=== PATIENT | male | born 1970 | race Caucasian/White ===

== ENCOUNTER 2016-07-27 21:11 | Emergency (ER) | payer MEDICARE ==
[~2016-07-27 21:11] MED LIST: AMITRIPTYLINE H50 MG PO; BAYER CHEWABLE81 MG PO; CARAFATE1 G PO; ECOTRIN325 MG PO; ELAVIL10 MG PO; ISOSORBIDE MONO30 M1 PO; KLONOPIN1 MG PO; PLAVIX75 MG PO; PRAVACHOL40 MG PO; PRILOSEC20 MG PO; WELLBUTRIN75 MG PO; ZESTRIL40 MG PO; ZOFRAN4 MG PO
[2016-07-27 22:07] LABS: CKMB 0.8 U/L (0.0-3.6); CREATINE KINASE 64 UL (21-232); TROPONIN-I < 0.017 ng/mL (0.000-0.060)
== END 2016-07-27 22:47 | disposition home or self-care (01) ==
LOC: D.ER 21:11
PROVIDERS: Emergency Medicine
DX: R07.9 Chest pain, unspecified (principal); I25.10 Atherosclerotic heart disease of native coronary artery without angina pectoris; I10 Essential (primary) hypertension; K21.9 Gastro-esophageal reflux disease without esophagitis; I45.10 Unspecified right bundle-branch block

== ENCOUNTER 2016-07-29 20:14 | Emergency (ER) | payer MEDICARE ==
[2016-07-29 20:46] LABS: BASOPHILS 0.8 % (0.0-2.0); EOSINOPHILS 4.3 % (0-7); HEMATOCRIT 47.5 % (42.0-54.0); HEMOGLOBIN 16.4 g/dL (13.5-17.5); IMMATURE GRANULOCYTES 0.9 % (0-5); LYMPHOCYTES 34.1 % (15-50); MCH 32.2 pg (26.0-34.0); MCHC 34.5 g/dL (31.0-37.0); MCV 93.3 fL (80.0-100.0); MEAN PLATELET VOLUME 9.4 fL (7.4-10.4); MONOCYTES 6.7 % (2-11); NEUTROPHILS 53.2 % (40-80); PLATELET COUNT 210 10x3/uL (130-400); RBC 5.09 10x6/uL (4.20-6.10); RDW 12.6 % (11.5-14.5); WBC 10.7 10x3/uL (4.8-10.8)
[2016-07-29 21:13] LABS: ALBUMIN 4.2 g/dL (3.4-5.0); ALKALINE PHOSPHATASE 108 U/L (46-116); ALT (SGPT) 102 U/L (10-68); BILIRUBIN - TOTAL 0.39 mg/dL (0.2-1.3); CALC OSMOLALITY 282 mosm/kg (275-300); CALCIUM 9.6 mg/dL (8.5-10.1); CARBON DIOXIDE 27.9 mmol/L (21.0-32.0); CHLORIDE - SERUM 102 mmol/L (98-107); CHOL - HDL RATIO 3.1 ratio (2.3-4.9); CHOLESTEROL, TOTAL 166 mg/dL (0-200); CKMB 0.9 U/L (0.0-3.6); CREATINE KINASE 79 UL (21-232); CREATININE - SERUM 1.5 mg/dL (0.6-1.3); GLUCOSE 172 mg/dL (74-106); HDL CHOLESTEROL 54 mg/dL (32-96); LDL CHOLESTEROL 38 mg/dL (0-100); LDL-HDL RATIO 0.7 ratio (1.5-3.5); POTASSIUM - SERUM 4.2 mmol/L (3.5-5.1); PROTEIN - SERUM 7.5 g/dL (6.4-8.2); SODIUM 139 mmol/L (136-145); TRIGLYCERIDE 371 mg/dL (30-200); UREA NITROGEN 15 mg/dL (7-18); eGFR NON AFRICAN AMERICAN 54 mL/min (90-120)
[2016-07-29 21:14] LABS: TROPONIN-I < 0.017 ng/mL (0.000-0.060)
== END 2016-07-29 21:35 | disposition home or self-care (01) ==
LOC: D.ER 20:14
PROVIDERS: Emergency Medicine
DX: R07.9 Chest pain, unspecified (principal); I25.10 Atherosclerotic heart disease of native coronary artery without angina pectoris; I10 Essential (primary) hypertension; K21.9 Gastro-esophageal reflux disease without esophagitis; R00.0 Tachycardia, unspecified; I45.10 Unspecified right bundle-branch block; I44.60 Unspecified fascicular block

== ENCOUNTER 2016-10-29 00:53 | Emergency (ER) | payer MEDICARE ==
[2016-10-29 01:21] LABS: EOSINOPHILS 7.1 % (0-7); HEMATOCRIT 44.2 % (42.0-54.0); HEMOGLOBIN 15.2 g/dL (13.5-17.5); IMMATURE GRANULOCYTES 0.8 % (0-5); LYMPHOCYTES 37.4 % (15-50); MCH 31.9 pg (26.0-34.0); MCHC 34.4 g/dL (31.0-37.0); MCV 92.9 fL (80.0-100.0); MEAN PLATELET VOLUME 9.5 fL (7.4-10.4); MONOCYTES 7.3 % (2-11); NEUTROPHILS 46.4 % (40-80); PLATELET COUNT 191 10x3/uL (130-400); RBC 4.76 10x6/uL (4.20-6.10); RDW 12.2 % (11.5-14.5); WBC 9.4 10x3/uL (4.8-10.8)
[2016-10-29 01:34] LABS: ALBUMIN 3.9 g/dL (3.4-5.0); ALKALINE PHOSPHATASE 105 U/L (46-116); ALT (SGPT) 101 U/L (10-68); BILIRUBIN - TOTAL 0.43 mg/dL (0.2-1.3); CALC OSMOLALITY 281 mosm/kg (275-300); CALCIUM 8.5 mg/dL (8.5-10.1); CHLORIDE - SERUM 103 mmol/L (98-107); CREATININE - SERUM 1.2 mg/dL (0.6-1.3); GLUCOSE 183 mg/dL (74-106); POTASSIUM - SERUM 4.1 mmol/L (3.5-5.1); PROTEIN - SERUM 7.3 g/dL (6.4-8.2); SODIUM 139 mmol/L (136-145); UREA NITROGEN 9 mg/dL (7-18); eGFR NON AFRICAN AMERICAN 69 mL/min (90-120)
[2016-10-29 01:51] LABS: CHOL - HDL RATIO 2.9 ratio (2.3-4.9); CHOLESTEROL, TOTAL 149 mg/dL (0-200); CREATINE KINASE 83 UL (21-232); HDL CHOLESTEROL 52 mg/dL (32-96); LDL CHOLESTEROL 45 mg/dL (0-100); LDL-HDL RATIO 0.9 ratio (1.5-3.5); TRIGLYCERIDE 260 mg/dL (30-200)
[2016-10-29 01:54] LABS: TROPONIN-I < 0.017 ng/mL (0.000-0.060)
== END 2016-10-29 02:38 | disposition home or self-care (01) ==
LOC: D.ER 00:53
PROVIDERS: Emergency Medicine
DX: R07.9 Chest pain, unspecified (principal); I25.10 Atherosclerotic heart disease of native coronary artery without angina pectoris; I10 Essential (primary) hypertension; K21.9 Gastro-esophageal reflux disease without esophagitis; I45.10 Unspecified right bundle-branch block; I44.60 Unspecified fascicular block

== ENCOUNTER 2016-12-27 11:38 | Inpatient (IN) | payer MEDICARE ==
[~2016-12-27] VITALS: Ht 170.2 cm; Wt 88.4 kg
[2016-12-27 13:12] LABS: BASOPHILS 0.4 % (0-2); EOSINOPHILS 1.3 % (0-7); HEMATOCRIT 49.5 % (42.0-54.0); HEMOGLOBIN 17.4 g/dL (13.5-17.5); IMMATURE GRANULOCYTES 0.8 % (0-5); LYMPHOCYTES 14.3 % (15-50); MCH 32.2 pg (26.0-34.0); MCHC 35.2 g/dL (31.0-37.0); MCV 91.7 fL (80.0-100.0); MEAN PLATELET VOLUME 9.6 fL (7.4-10.4); NEUTROPHILS 76.2 % (40-80); PLATELET COUNT 226 10x3/uL (130-400); RDW 12.5 % (11.5-14.5); WBC 15.5 10x3/uL (4.8-10.8)
[2016-12-27 13:28] LABS: ALBUMIN 4.7 g/dL (3.4-5.0); ALKALINE PHOSPHATASE 92 U/L (46-116); ALT (SGPT) 118 U/L (10-68); BILIRUBIN - TOTAL 1.12 mg/dL (0.2-1.3); CALC OSMOLALITY 277 mosm/kg (275-300); CALCIUM 10.6 mg/dL (8.5-10.1); CARBON DIOXIDE 22.8 mmol/L (21.0-32.0); CHLORIDE - SERUM 101 mmol/L (98-107); CREATININE - SERUM 1.3 mg/dL (0.6-1.3); GLUCOSE 157 mg/dL (74-106); POTASSIUM - SERUM 4.7 mmol/L (3.5-5.1); PROTEIN - SERUM 8.3 g/dL (6.4-8.2); SODIUM 138 mmol/L (136-145); UREA NITROGEN 11 mg/dL (7-18); eGFR NON AFRICAN AMERICAN 63 mL/min (90-120)
[2016-12-27 13:53] LABS: CHOL - HDL RATIO 2.5 ratio (2.3-4.9); CHOLESTEROL, TOTAL 157 mg/dL (0-200); CREATINE KINASE 84 UL (21-232); HDL CHOLESTEROL 64 mg/dL (32-96); LDL CHOLESTEROL 73 mg/dL (0-100); LDL-HDL RATIO 1.1 ratio (1.5-3.5); TRIGLYCERIDE 101 mg/dL (30-200)
[2016-12-27 13:55] LABS: TROPONIN-I < 0.017 ng/mL (0.000-0.060)
--- NOTE | 2016-12-27 18:19 | NUR ---
RECEIVED PATIENT TO ROOM 2238 VIA WHEELCHAIR FROM THE ER. PATIENT IS AWAKE, ALERT, AND ORIENTED X4. PATIENT IS PROFUSELY VOMITING IN EMESIS BAG UPON ARRIVAL TO HIS ROOM. PATIENT MOANING LOUDLY. NG TUBE NOTED IN RIGHT NARES AND IS CLAMPED OFF. ORIENTED PATIENT AND FAMILY TO HIS ROOM AND CALL LIGHT.
[2016-12-27 18:21] LABS: APPEARANCE CLEAR (CLEAR); BILIRUBIN NEGATIVE (NEGATIVE); COLOR YELLOW (YELLOW); GLUCOSE NEGATIVE (NEGATIVE); KETONE SMALL mg/dL (NEGATIVE); LEUKOCYTE ESTERASE NEGATIVE (NEGATIVE); NITRITE NEGATIVE (NEGATIVE); PROTEIN TRACE mg/dL (NEGATIVE); UROBILINOGEN NORMAL (NORMAL)
--- NOTE | 2016-12-27 18:49 | NUR ---
16FR NGT DROPPED PER ORDERS. IMMEDIATE RETURN OF 50CC'S OF YELLOW/GREEN FLUID TO CANISTER. KUB ORDERED PER PROTOCOL TO CHECK PLACEMENT.
--- NOTE | 2016-12-27 19:40 | NUR ---
RECIEVED SHIFT REPORT. PT IS LYING IN BED. ALERT AND ORIENTED AND ABLE TO VERBALIZE NEEDS. IV IS PATENT AND FLUIDS ARE RUNNING PER ORDER. PT IS AMBULATORY WITH ASSISTANCE. NGT TO LEFT NARE PATENT AND CONNECTED TO LIWS. 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 NO NEEDS ARE VERBALIZED AT THIS TIME. FAMILY AND VISITORS ARE AT THE BEDSIDE. WILL CONTINUE TO MONITOR. SIDE RAILS ARE UP X 2. BED IS IN LOWEST POSITION. CALL LIGHT IS WITHIN REACH.
[2016-12-27 20:00] VITALS: BP 112/72
--- NOTE | 2016-12-27 22:37 | NUR ---
ADMIT ASSESSMENT COMPLETED AT THIS TIME. PT HAS NO NEEDS. WILL MONITOR. SIDE RAILS X 2. BED LOW. CALL LIGHT IN REACH.
[2016-12-28] VITALS (7 sets, daily range): BP systolic 110–133; BP diastolic 72–703; Ht 170.2 cm; Wt 88.4 kg
[2016-12-28 00:53] LABS: APPEARANCE CLEAR (CLEAR); BILIRUBIN NEGATIVE (NEGATIVE); COLOR YELLOW (YELLOW); GLUCOSE NEGATIVE (NEGATIVE); KETONE SMALL mg/dL (NEGATIVE); LEUKOCYTE ESTERASE NEGATIVE (NEGATIVE); NITRITE NEGATIVE (NEGATIVE); PROTEIN NEGATIVE (NEGATIVE); SPECIFIC GRAVITY 1.015 (1.005-1.020); UROBILINOGEN NORMAL (NORMAL)
[2016-12-28 05:34] LABS: BASOPHILS 0.6 % (0-2); EOSINOPHILS 1.5 % (0-7); HEMATOCRIT 47.5 % (42.0-54.0); HEMOGLOBIN 16.1 g/dL (13.5-17.5); IMMATURE GRANULOCYTES 0.8 % (0-5); LYMPHOCYTES 24.8 % (15-50); MCHC 33.9 g/dL (31.0-37.0); MEAN PLATELET VOLUME 9.7 fL (7.4-10.4); MONOCYTES 10.9 % (2-11); NEUTROPHILS 61.4 % (40-80); PLATELET COUNT 226 10x3/uL (130-400); RBC 5.03 10x6/uL (4.20-6.10); RDW 12.8 % (11.5-14.5); WBC 13.2 10x3/uL (4.8-10.8)
[2016-12-28 06:02] LABS: ANION GAP 15.5 mmol/L (8-16); CALCIUM 9.9 mg/dL (8.5-10.1); CARBON DIOXIDE 27.8 mmol/L (21.0-32.0); CREATININE - SERUM 1.5 mg/dL (0.6-1.3); MAGNESIUM - SERUM 1.7 mg/dL (1.8-2.4); POTASSIUM - SERUM 4.3 mmol/L (3.5-5.1)
[2016-12-28 06:36] LABS: MCV 94.4 fL (80.0-100.0)
--- NOTE | 2016-12-28 07:30 | NUR ---
RECIEVED PT DURING WALKING ROUNDS. PT RESTING IN BED WITH NO COMPLAINTS OF PAIN OR DISCOMFORT AT THIS TIME. ASSESSMETN DONE PER FLOWSHEET. BED IN LOW POSITION AND CALL LIGHT WITHIN REACH. WILL CONTINUE TO MONITOR.
--- NOTE | 2016-12-28 09:49 | HP ---
PATIENT: ANDRE PATIÑO MEDICAL RECORD: [id number] ACCOUNT: [id number] LOCATION:[id number] : 72 ADMISSION DATE: 12/27/16 HISTORY AND PHYSICAL EXAMINATION DATE OF ADMISSION: 12/27/2016 CHIEF COMPLAINT: Abdominal pain and vomiting. HISTORY OF PRESENT ILLNESS: This is a 46-year-old male, who woke up with acute onset of abdominal pain in approximately 4:00 this morning. The patient says the pain woke him from sleep. The pain has been constant since onset. It is located diffusely throughout the abdomen, described it as cramping, stabbing abdominal pain, did not radiate. It fluctuates in intensity, it is currently 7 out of 10. He says he had 6 days episode of vomiting prior to his arrival to the ER today. The patient denies any episodes of hematemesis. Denies any melena or hematochezia. No dysuria. Denies any constipation or diarrhea. Denies fever or chills. PAST MEDICAL HISTORY: Coronary artery disease, hypertension, and nicotine dependence. PAST SURGICAL HISTORY: Coronary angiography with stent and angioplasty, cholecystectomy, right inguinal hernia repair. SOCIAL HISTORY: He is a daily smoker. Denies alcohol use. MEDICATIONS: Please see electronic medical record for full list of home medications. FAMILY HISTORY: Parents both have diabetes and cardiovascular disease. REVIEW OF SYSTEMS: A 12-point review of system was obtained, pertinent positives and negatives as per the HPI. PHYSICAL EXAMINATION: VITAL SIGNS: Stable. He is febrile. CONSTITUTIONAL: This is an obese male, in moderate distress. PSYCHIATRIC: He is alert and oriented times 3. EYES: Extraocular muscles are intact. EAR, NOSE AND THROAT: Mucous membranes dry, poor dentition. NECK: Supple. CARDIOVASCULAR: Normal sinus rhythm. No murmur. LUNGS: Decreased breath sounds bilaterally with bilateral wheezing. ABDOMEN: Firm and is moderately distended. No palpable hernia defects. No guarding. No rebound. No peritoneal signs. SKIN: Warm and dry with normal turgor. EXTREMITIES: He is neurovascularly intact with 1+ peripheral edema. NEUROLOGIC: GCS is 15 with no focal deficits. LABORATORY DATA: Reviewed. Please see electronic medical record for full list of laboratory values, the chemistry and urinalysis. CT images of the bowel were personally reviewed. The patient has dilation of the proximal small bowel, there was some mild tapering . KUB/abdominal x-ray reviewed which shows appropriate placement of NG tube in the stomach. HISTORY AND PHYSICAL [id number] ANDRE PATIÑO IMPRESSION: 1. Small-bowel obstruction. Abdominal ____. PLAN: 1. Admit to Med/Surg to Dr. Lyon. 2. NG tube decompression. 3. ____ I's and O's. 4. IV narcotics for pain control. 5. IV antiemetics. 6. Serial abdominal exams. 7. Repeat abdominal x-ray in the a.m. Repeat labs in the a.m. TRANSINT:[id number] Voice Confirmation ID: [id number] DOCUMENT ID: [id number] ANDRE LYON MD at 0949 CC: [id number] DICTATION DATE: 12/27/162136 TONGUE TRIMMER: 12/28/16 0140 ADM IN [facility] [address] [id number]
--- NOTE | 2016-12-28 12:50 | NUR ---
NG TUBE REMOVED AT THIS TIME PER ORDER FROM DR. LYON. PT TOLERATED WELL. BED IN LOW POSTION AND CALL LIGHT WITHIN REACH. WILL CONTINUE TO MONITOR.
--- NOTE | 2016-12-28 14:41 | NUR ---
Patient Name: ANDRE PATIÑO Admission Status: ER Accout number: [id number] Admission Date: 12-27-2016 : 1970 Admission Diagnosis: Attending: MICKEY Current LOS: 1 Anticipated DC Date: 12-30-2016 Planned Disposition: Home Primary Insurance: MEDICARE A & B Discharge Planning Comments: CM MET WITH PATIENT REGARDING D/C NEEDS AND PLANS. PATIENT STATED HE LIVES WITH HIS SON AND DAUGHTER IN LAW (CANDICE, AND BLESSING). PATIENTS SON WILL DRIVE HIM HOME AT DISCHARGE. PATIENT STATED HE HAS 2 STEPS TO ENTER HOME AND NO STAIRS INSIDE. PATIENT IS INDEPENDENT WITH HIS CARE AND HAS A WALKER, AND SET OF CRUTCHES AT HOME. PATIENTS PCP IS DR. VILLEDA AND PHARMACY IS [facility] [address]. PATIENT REFUSED HOME HEALTH AND STATED HE HAD NO NEEDS AT THIS TIME FOR DISCHARGE. CM WILL CONTINUE TO FOLLOW PATIENT WITH D/C NEEDS AND PLANS. PCP DR. CHRISTIANA MATTHEWS [facility] [employer]E [phone] JUSTA - [phone] Block Cuber: Cari Ramos Is the patient Alert and Oriented? Yes 0 * How many steps to enter\exit or inside your home? 2 W/O RAIL 0 * PCP DR. VILLEDA 0 * Pharmacy [facility] [address] 0 * Preadmission Environment Home with Family 0 * ADLs Independent 0 * Equipment Crutch Walker 0 * List name and contact numbers for known caregivers / representatives who currently or will assist patient after discharge: JUSTA GARNETT (SON AND DIL) [phone] * Community resources currently utilized None 0 * Additional services required to return to the preadmission environment? Yes 0 * Can the patient safely return to the preadmission environment? Yes 0 * Has this patient been hospitalized within the prior 30 days at any hospital? No 0 Grand Total: 0
--- NOTE | 2016-12-28 20:59 | NUR ---
PT SITTING UP IN BED. ALERT AND ORIENTED. C/O PAIN 09/29 TO ABD. INSTRUCTED TO USE MERCHANDISING LEAD. NOTED SEVERE SHAKING OF HANDS. STATES THIS IS NEW TODAY. SCHEDULED MEDS GIVEN. SHIFT ASSESSMENT COMPLETED. NO NEEDS VOICED AT THIS TIME
--- NOTE | 2016-12-28 23:55 | NUR ---
PT IV OUT. CATH TIP INTACT. NEW IV 20G IV STARTED TO LEFT HAND ON FIRST ATTEMPT. TOLERATED WITHOUT COMPLAINTS
[2016-12-29] VITALS: BP 124/81
[2016-12-29 04:00] VITALS: BP 137/86
--- NOTE | 2016-12-29 04:14 | NUR ---
PT SITTING IN BED WORKING ON COMPUTER. DENIES NEEDS. NO DISTRESS NOTED. CONTINUE INK PRINTER'S PLAN OF CARE.
[2016-12-29 06:28] LABS: BASOPHILS 0.7 % (0-2); EOSINOPHILS 3.3 % (0-7); HEMATOCRIT 40.9 % (42.0-54.0); HEMOGLOBIN 13.4 g/dL (13.5-17.5); IMMATURE GRANULOCYTES 0.5 % (0-5); LYMPHOCYTES 27.7 % (15-50); MCH 31.4 pg (26.0-34.0); MCHC 32.8 g/dL (31.0-37.0); MCV 95.8 fL (80.0-100.0); MEAN PLATELET VOLUME 9.2 fL (7.4-10.4); NEUTROPHILS 57.8 % (40-80); RBC 4.27 10x6/uL (4.20-6.10); RDW 12.6 % (11.5-14.5); WBC 10.7 10x3/uL (4.8-10.8)
[2016-12-29 06:30] LABS: PLATELET COUNT 179 10x3/uL (130-400)
[2016-12-29 07:15] LABS: CALCIUM 8.5 mg/dL (8.5-10.1); CARBON DIOXIDE 28.3 mmol/L (21.0-32.0); CREATININE - SERUM 1.4 mg/dL (0.6-1.3); MAGNESIUM - SERUM 1.9 mg/dL (1.8-2.4); POTASSIUM - SERUM 4.3 mmol/L (3.5-5.1)
--- NOTE | 2016-12-29 07:30 | NUR ---
RECIEVED PT DURING WALKING ROUNDS. PT RESTING IN BED WITH COMPLAINTS OF DISCOMFORT IN HIS ABDOMEN OF A 4 ON A SCALE OF 1-10. TRAFFIC WORKER IN USE. ASSESSMENT DONE PER FLOWSHEET. BED IN LOW POSITION AND CALL LIGHT WITHIN REACH. WILL CONTINUE TO MONITOR.
[2016-12-29 08:09] VITALS: BP 130/83
--- NOTE | 2016-12-29 09:22 | NUR ---
DC'S DEVELOPMENT INTERN AT THIS TIME PER DRS ORDERS. WILL CONTINUE TO MONITOR.
[2016-12-29 12:38] VITALS: BP 109/70
[2016-12-29] MEDS ORDERED: ZOFRAN ODT4 MG/UDTAB PO (14:40)
--- NOTE | 2016-12-29 16:27 | NUR ---
CM REASSESSMENT NOTE: PATIENT IS DISCHARGING TODAY HOME - SON DRIVING HIM. PATIENT DENIED HOME HEALTH AND HAD NO OTHER NEEDS FOR DISCHARGE.
--- NOTE | 2016-12-29 18:10 | NUR ---
DISCHARGE INSTRUCTIONS GIVEN, IV REMOVED. PT DISCHARGED TO HOME VIA WHEELCHAIR.
== END 2016-12-29 18:11 | disposition home or self-care (01) | DRG 390 ==
LOC: D.ER 11:38 → D.MS 16:55
PROVIDERS: Emergency Medicine; ADMIT Surgery
DX: K56.60 Unspecified intestinal obstruction (principal); K21.9 Gastro-esophageal reflux disease without esophagitis; I10 Essential (primary) hypertension; I25.10 Atherosclerotic heart disease of native coronary artery without angina pectoris

== ENCOUNTER 2017-04-24 20:35 | Emergency (ER) | payer MEDICARE ==
[2016-12-28 01:37] VITALS: BMI 31.4
[~2017-04-24 20:35] MED LIST changes: +ZOFRAN ODT4 MG/UDTAB PO
[2017-04-24 21:16] LABS: BASOPHILS 0.8 % (0-2); EOSINOPHILS 2.4 % (0-7); HEMATOCRIT 45.7 % (42.0-54.0); HEMOGLOBIN 15.7 g/dL (13.5-17.5); IMMATURE GRANULOCYTES 0.9 % (0-5); LYMPHOCYTES 32.7 % (15-50); MCH 31.9 pg (26.0-34.0); MCHC 34.4 g/dL (31.0-37.0); MCV 92.9 fL (80.0-100.0); MEAN PLATELET VOLUME 9.2 fL (7.4-10.4); MONOCYTES 7.2 % (2-11); PLATELET COUNT 198 10x3/uL (130-400); RBC 4.92 10x6/uL (4.20-6.10); RDW 12.5 % (11.5-14.5); WBC 10.3 10x3/uL (4.8-10.8)
[2017-04-24 21:42] LABS: ALBUMIN 4.3 g/dL (3.4-5.0); ALKALINE PHOSPHATASE 86 U/L (46-116); ALT (SGPT) 54 U/L (10-68); CALC OSMOLALITY 279 mosm/kg (275-300); CALCIUM 9.7 mg/dL (8.5-10.1); CARBON DIOXIDE 28.6 mmol/L (21.0-32.0); CHLORIDE - SERUM 102 mmol/L (98-107); CREATININE - SERUM 1.3 mg/dL (0.6-1.3); GLUCOSE 164 mg/dL (74-106); POTASSIUM - SERUM 4.2 mmol/L (3.5-5.1); PROTEIN - SERUM 7.3 g/dL (6.4-8.2); SODIUM 137 mmol/L (136-145); UREA NITROGEN 17 mg/dL (7-18); eGFR NON AFRICAN AMERICAN 63 mL/min (90-120)
[2017-04-24 21:54] LABS: CKMB 0.5 U/L (0.0-3.6); CREATINE KINASE 71 UL (21-232); TROPONIN-I < 0.017 ng/mL (0.000-0.060)
== END 2017-04-25 00:09 | disposition home or self-care (01) ==
LOC: D.ER 20:35
PROVIDERS: Family Medicine
DX: R07.89 Other chest pain (principal); M51.36 Other intervertebral disc degeneration, lumbar region; I45.10 Unspecified right bundle-branch block; I44.60 Unspecified fascicular block

== ENCOUNTER 2017-05-20 18:32 | Outpatient (CLI) | payer MEDICARE ==
[2016-12-28 01:37] VITALS: BMI 31.4
--- NOTE | ~2017-05-20 | HEMODYNAMI ---
PATIENT:ANDRE PATIÑO MEDICAL RECORD: [id number] : [birth year] [facility] ADMISSION DATE: 05/20/17 Generatedon:05/21/201712:23 Patient name: ANDRE PATIÑO Patient #: [id number] : 1970 Date of study: 05/21/2017 Page: Of Hemodynamic Procedure Report Patient Data Patient Demographics Procedure consent was obtained First Name: ANDRE Gender: Male Last Name: HAROON : 1970 Middle Initial: JOJO Age: 47 year(s) Patient #: [id number] Race: SSN: [id number] Additional ID: [id number] Contact details Address: [address] [place] [address] State: [place] City: [place] Zip code: [address] Past Medical History Allergies: No known allergies Admission Admission Data Admission Date: 05/20/2017 Admission Time: 20:07 Room #: [facility] Procedure Procedure Types Cath Procedure Diagnostic Procedure [facility] w/Coronaries PCI Procedure Coronary Stent Initial Miscellaneous Procedures Moderate Sedation up to 30 minutes Procedure Description Procedure Date Procedure Date: 05/21/2017 Procedure Start Time: 12:03 Procedure End Time: 12:22 Procedure Staff Name Function Lj Zamorano MD Performing Physician Ulices Redd RT Scrub Catarina Norman RN Nurse Cristina Arias RT Monitor Lulu Miranda RN Nurse Procedure Data Cath Procedure Fluoroscopy Diagnostic fluoroscopy Total fluoroscopy Time: 3.2 time: 3.2 min min Diagnostic fluoroscopy Total fluoroscopy dose: 794 dose: 794 mGy mGy Contrast Material Contrast Material Type Amount (ml) Isovue 300 84 Entry Location Entry Primary Successful Side Size Upsize Upsize Entry Closure Succes sful Closure Location (Fr) 1 (Fr) 2 (Fr) Remarks Device Remarks Femoral Right 5 Fr 6 Fr Exoseal artery Short Estimated blood loss: 10 ml Diagnostic catheters Device Type Used For End Catheter Placement Cordis 5Fr Pigtail LV Angiography Catheter (MP) Cordis 5Fr JL 4.0 Left Coronary Catheter (MP) Angiography Cordis 5Fr 3DRC Catheter Right Coronary (MP) Angiography Procedure Complications No complications Procedure Medications Medication Administration Route Dosage Oxygen NC 2 l/min Lidocaine 2% added to field 20 Heparin Flush Bag added to field 2 bags (1000units/500ml NS) 0.9% NaCl I.V. 100 ml/hr Versed I.V. 2 mg Fentanyl I.V. 100 mcg Heparin Bolus I.V. 4000 units Integrilin (Bolus I.V. 8.5 ml 2mg/ml) Versed I.V. 2 mg Fentanyl I.V. 100 mcg Plavix P.O. 600 mg Hemodynamics Rest Heart Rate: 95 (bpm) Snapshots Pre Cath Intra NCS Post Cath Vital Signs Time Heart Resp SPO2 etCO2 NIBP (mmHg) Rhythm Pain Sedation Rate (ipm) (%) (mmHg) Status Level (bpm) 11:46:07 91 17 98 0 133/89(113) NSR 0 (11) 10(A) , No pain 11:50:23 93 17 99 37.3 135/94(111) NSR 0 (11) 10(A) , No pain 11:54:39 90 18 94 15.6 128/82(100) NSR 0 (11) 10(A) , No pain 11:59:33 86 17 93 28.3 149/96(112) NSR 0 (11) 10(A) , No pain 12:03:58 84 18 95 23.9 138/105(126) NSR 0 (11) 10(A) , No pain 12:09:52 82 16 94 42.5 142/103(120) NSR 0 (11) 9(A) , No pain 12:14:08 91 14 93 44.1 148/110(126) NSR 0 (11) 9(A) , No pain 12:19:19 93 16 95 40.3 150/84(123) NSR 0 (11) 10(A) , No pain Medications Time Medication Route Dose Verified Delivered Reason Notes Effectiveness by by 11:44:20 Oxygen NC 2 Lj Elmore used for l/min Jaun Norman edi developer 11:44:33 Lidocaine 2% added 20ml Lj Calhoun for local to vial Jaun Zamorano MD anesthetic field 11:44:42 Heparin Flush added 2 Lj Calhoun used for Bag to bags Jaun Zamorano MD procedure (1000units/500ml field NS) 11:44:52 0.9% NaCl I.V. 100 Lj Elmore Per ml/hr Jaun Norman RN physician 12:00:37 Versed I.V. 2 mg Lj Elmore for sedation Jaun Norman RN 12:00:43 Fentanyl I.V. 100 Lj Elmore for sedation mcg Jaun Norman RN 12:05:42 Versed I.V. 2 mg Lj Elmore for sedation Jaun Norman RN 12:05:45 Fentanyl I.V. 100 Lj Elmore for sedation mcg Jaun Norman RN 12:08:08 Heparin Bolus I.V. 4000 Lj Elmore for sedation verified units Jaun Norman RN with dr zamorano 12:09:18 Integrilin I.V. 8.5 Lj Elmore for wasted (Bolus 2mg/ml) ml Jaun Norman RN antiplatelet 1.5 ml therapy of vial 12:21:19 Plavix P.O. 600 jL Elmore for mg Jaun Norman RN antiplatelet therapy Procedure Log Time Note 11:30:13 Cristina Counts RT(R) sent for patient. Start room use. 11:30:14 Time tracking: Regular hours 11:30:18 Plan of Care:Hemodynamics will remain stable., Cardiac rhythm will remain stable., Comfort level will be maintained., Respiratory function will remain adequate., Patient/ family verbilizes understanding of procedure., Procedure tolerated without complication., Recovers from procedure without complications.. 11:44:20 Oxygen 2 l/min NC was administered by Catarina Norman RN; used for procedure; 11:44:33 Lidocaine 2% 20ml vial added to field was administered by Lj Zamorano MD; for local anesthetic; 11:44:42 Heparin Flush Bag (1000units/500ml NS) 2 bags added to field was administered by Lj Zamorano MD; used for procedure; 11:44:52 0.9% NaCl 100 ml/hr I.V. was administered by Catarina Norman RN; Per physician; 11:44:55 Vital chart was started 11:47:29 Patient received from PCU to [facility] 2 Alert and oriented. Tansferred to table in Supine position. 11:47:30 Warm blankets applied, and alberto hugger turned on for patient comfort. 11:47:31 Correct patient and procedure confirmed by team. 11:47:32 Signed procedure consent form obtained from patient. 11:47:33 ECG and BP/O2 sat monitors applied to patient. 11:49:49 PERCUTANEOUS ENTRY 19GA needle opened to sterile field. 11:49:52 Baseline sample Acquired. 11:49:55 Rhythm: sinus rhythm 11:49:56 Full Disclosure recording started 11:50:24 H&P Date Dictated: 05/21/2017 Within 30 days and on chart.. 11:50:26 Pre-procedure instructions explained to patient. 11:50:26 Pre-op teaching completed and patient verbalized understanding. 11:50:27 Family in waiting room. 11:50:28 Patient NPO since Midnight. 11:50:35 Is the patient allergic to Iodine/contrast media? No. 11:51:07 Is patient on blood thinner?No 11:51:10 Patient diabetic? No. 11:51:14 Previous problem with sedation/anesthesia? No ? 11:51:14 Snore? Yes 11:51:15 Sleep apnea? Yes 11:51:16 Deviated septum? No 11:51:17 Opens mouth fully? Yes 11:51:18 Sticks out tongue? Yes 11:51:20 Airway obstruction? No ? 11:51:21 Dentures? No ? 11:51:24 Pre procedure: right dorsailis pedis pulse 2+ Normal; easily identifiable; not easily obliterated 11:51:27 Patient pain scale 0/10 ?. 11:51:35 IV patent on arrival in right forearm with 0.9% NaCl at O. 11:51:45 Lab results completed and on chart. 11:51:47 Right groin area was prepped with chlora-prep and draped in sterile fashion 11:51:48 Alarms reviewed by R. N. 11:51:48 Sharps counted by scrub and verified by R.N. 11:51:51 Use device set Femoral Dx 11:51:53 Acist Syringe opened to sterile field. 11:51:53 Bag Decanter opened to sterile field. 11:51:54 Medline Cath Pack opened to sterile field. 11:51:54 Terumo 5Fr [place]uiqs[place] Sheath opened to sterile field. 11:51:54 St Weston 260cm J .035 wire opened to sterile field. 11:51:56 Acist Hand Control opened to sterile field. 11:51:57 Acist Manifold opened to sterile field. 11:51:57 Diagnostic Infinity 5Fr Multipack catheter opened to sterile field. 11:51:58 Tegaderm 4 x 4 opened to sterile field. 11:56:05 Physician paged 11:58:15 Zero performed for pressure channel P1 11:59:46 Final Timeout: patient, procedure, and site verified with staff and physician. All members of the team are in agreement. 11:59:48 Right groin site verified by team. 11:59:51 Physical assessment completed. ASA score P 2 - A patient with mild systemic disease as per Lj Zamorano MD. 11:59:53 Sedation plan: IV Moderate Sedation Versed, Fentanyl 12:00:37 Versed 2 mg I.V. was administered by Catarina Norman RN; for sedation; 12:00:43 Fentanyl 100 mcg I.V. was administered by Catarina Norman RN; for sedation; 12:03:01 Procedure started. 12:03:03 Local anesthetic to right femoral artery with Lidocaine 2% by Lj Zamorano MD.INITIAL ACCESS ONLY 12:03:48 A 5 Fr sheath was inserted into the Right Femoral artery 12:03:54 A Cordis 5Fr Pigtail Catheter (MP) was advanced over the wire and used for LV Angiography. 12:04:10 LV gram done using VRAGAS 12:04:13 EF : 50 % 12:04:18 Injector settings: Ml/sec: 10, Volume: 20, 12:04:19 Catheter removed. 12:04:24 A Cordis 5Fr JL 4.0 Catheter (MP) was advanced over the wire and used for Left Coronary Angiography. 12:05:33 Catheter removed. 12:05:39 A Cordis 5Fr 3DRC Catheter (MP) was advanced over the wire and used for Right Coronary Angiography. 12:05:42 Versed 2 mg I.V. was administered by Catarina Norman RN; for sedation; 12:05:45 Fentanyl 100 mcg I.V. was administered by Catarina Norman RN; for sedation; 12:05:57 Terumo 6Fr Nuiqsut Sheath opened to sterile field. 12:05:57 Hutchinson Whisper J 300cm 0.014 guide wire opened to sterile field. 12:05:58 Merit BasixCompak Inflation Kit opened to sterile field. 12:06:40 Catheter removed. 12:06:52 Sheath upsized to a 6 Fr Short. 12:07:22 Cordis 6FR XBLAD 3.5 guide catheter opened to sterile field. 12:07:58 6 Fr XBLAD 3.5 guide catheter was inserted over the wire 12:08:08 Heparin Bolus 4000 units I.V. was administered by Catarina Norman RN; for sedation; verified with dr zamorano 12:08:57 Whisper wire advanced. 12:09:18 Integrilin (Bolus 2mg/ml) 8.5 ml I.V. was administered by Catarina Norman RN; for antiplatelet therapy; wasted 1.5 ml of vial 12:10:49 Inflation number: 1 A Euphora 2.0 x 10 Balloon was prepped and advanced across the 1st Diag, then inflated to 17 LACEY for 0:11 (min:sec). 12:11:18 Inflation number: 2 The Euphora 2.0 x 10 Balloon was reinflated across the 1st Diag, to 7 LACEY for 0:06 (min:sec). 12:11:30 Balloon removed over the wire. 12:14:33 Inflation Number: 3 A Hugoton OTW 2.25 x 22 stent was prepped and advanced across the 1st Diag. The stent was deployed at 11 LACEY for 0:04 (min:sec). 12:14:51 Stent catheter was removed intact over wire. 12:14:52 Wire removed. 12:14:53 Guide catheter removed. 12:15:01 Sheath removed intact; hemostasis achieved with Exoseal to the Right Femoral artery. 12:15:07 Cordis 6Fr Exoseal opened to sterile field. 12:15:12 Procedure ended.(Physican Out) 12:15:33 Fluoroscopy time 03.20 minutes. 12:15:36 Fluoroscopy dose: 794 mGy 12:15:36 Flurop Dose total: 794 12:15:40 Contrast amount:Isovue 300 84ml. 12:15:41 Sharps counted by scrub and verified by R.N. 12:15:43 Insertion/operative site no bleeding no hematoma. 12:15:45 Post-op/insertion site Right Femoral artery dressed using a 4 x 4 and Tegaderm. 12:15:48 Post right femoral artery:stable, clean and dry 12:17:12 Post Procedure Pulses reassessed and unchanged 12:17:15 Post-procedure physical assessment completed. ASA score P 2 - A patient with mild systemic disease as per Lj Zamorano MD. 12:17:17 Post procedure rhythm: unchanged. 12:17:19 Estimated blood loss: 10 ml 12:17:21 Post procedure instruction explained to patient.Patient verbalizes understanding. 12:17:21 Patient needs reinforcement of post procedure teaching. 12:17:28 Procedure type changed to Cath procedure, Diagnostic procedure, LHC, LHC w/Coronaries, PCI procedure, Coronary Stent Initial, Miscellaneous Procedures, Moderate Sedation up to 30 minutes 12:17:36 Procedure Complication : No complications 12:17:38 See physician's report for complete and final results. 12:18:17 IV Extension Set opened to sterile field. 12:18:28 Procedure and supply charges have been captured, reviewed, submitted and are correct. 12:21:19 Plavix 600 mg P.O. was administered by Catarina Norman RN; for antiplatelet therapy; 12:21:43 Vital chart was stopped 12:21:46 Report given to PCU. 12:21:50 Patient transfered to PCU with Bed. 12:22:02 Procedure ended. 12:22:02 Full Disclosure recording stopped 12:22:06 End room use (Document Last) Intervention Summary Intervention Notes Time ActionType Lesion and Equipment Action# Pressure Duration Attributes Used 12:10:49 Inflate 1st Diag Euphora 1 17 00:11 balloon 2.0 x 10 Balloon 12:11:18 Reinflate 1st Diag Euphora 2 7 00:06 balloon 2.0 x 10 Balloon 12:14:33 Place stent 1st Diag Hugoton OTW 3 11 00:04 2.25 x 22 stent Device Usage Item Name Manufacture Quantity Catalog Hospital Part Current Minima l Lot# / Number Charge Number Stock Stock Serial# Code PERCUTANEOUS Cook Medical 1 [id number] [id number] 5 ENTRY 19GA needle Acist Acist 1 81639 636720 222679 117251 20 Syringe Medical Systems Inc Bag Decanter Microtek 1 2002S 000519 80235 933210 5 TV Pixie Inc. Medline Cath Cardinal 1 [id number] 712612 45691 363707 5 Prezto Terumo 5Fr Terumo 1 ANV619 920337 433050 922599 [address] St Weston 1 197959 243810 974850 681634 30 260cm J .035 wire Acist Hand Acist 1 13127 612532 610179 959359 5 Control Medical Systems Inc Acist Acist 1 62765 357594 432127 804549 5 Manifold Medical Systems Inc Diagnostic Cardinal 1 HX4530 903869 98014 932563 30 Infinity 5Fr Health Multipack catheter Tegaderm 4 x 3M 1 1626W 821911 201970 990704 5 4 Cordis 5Fr Cardinal 1 706815 5 Pigtail Health Catheter (MP) Cordis 5Fr Cardinal 1 423200 5 JL 4.0 Health Catheter (MP) Cordis 5Fr Cardinal 1 309129 5 3DRC Health Catheter (MP) Terumo 6Fr Terumo 1 OBF290 903382 442327 348459 40 [place]ui[place] Sheath [facility] 1 [id number] 673316 716562 802784 5 Whisper J Vascular 300cm 0.014 guide wire Merit Merit 1 PP6974 688366 793246 454842 15 BasixHotDog Systemspak Medical Inflation Kit Cordis 6FR Cardinal 1 [id number] 306879 943185 926350 10 XBLAD 3.5 Health guide catheter Euphora 2.0 Medtronic 1 [id number] 985776 054340 147747 5 [id number] x 10 Balloon Hugoton OTW Medtronic 1 [id number] 799339 47641 077232 5 [id number] 2.25 x 22 stent Cordis 6Fr Cardinal 1 EX600 521619 438050 285286 10 [facility] IV Extension Hospira 1 97458-10 468060 53054 859677 5 Set Signature Audit [place] Stage Time Signature Unsigned Intra-Procedure 05/21/2017 Cristina 12:23:10 PM Counts RT(R) Signatures Monitor : Cristina Signature : Counts RT Date : Time : [facility] [address] [place] [address]
[2017-05-20 19:15] LABS: BASOPHILS 0.6 % (0-2); EOSINOPHILS 2.6 % (0-7); HEMATOCRIT 42.6 % (42.0-54.0); HEMOGLOBIN 14.5 g/dL (13.5-17.5); LYMPHOCYTES 29.5 % (15-50); MCH 32.1 pg (26.0-34.0); MCV 94.2 fL (80.0-100.0); MEAN PLATELET VOLUME 9.1 fL (7.4-10.4); MONOCYTES 9.4 % (2-11); NEUTROPHILS 56.9 % (40-80); PLATELET COUNT 182 10x3/uL (130-400); RBC 4.52 10x6/uL (4.20-6.10); RDW 12.6 % (11.5-14.5); WBC 8.3 10x3/uL (4.8-10.8)
[2017-05-20 19:27] LABS: ALBUMIN 3.9 g/dL (3.4-5.0); ALKALINE PHOSPHATASE 77 U/L (46-116); ALT (SGPT) 57 U/L (10-68); BILIRUBIN - TOTAL 0.62 mg/dL (0.2-1.3); CALC OSMOLALITY 284 mosm/kg (275-300); CALCIUM 8.8 mg/dL (8.5-10.1); CHLORIDE - SERUM 106 mmol/L (98-107); CREATININE - SERUM 1.2 mg/dL (0.6-1.3); GLUCOSE 134 mg/dL (74-106); POTASSIUM - SERUM 4.2 mmol/L (3.5-5.1); SODIUM 142 mmol/L (136-145); UREA NITROGEN 13 mg/dL (7-18); eGFR NON AFRICAN AMERICAN 69 mL/min (90-120)
[2017-05-20 19:38] LABS: CHOL - HDL RATIO 2.8 ratio (2.3-4.9); CHOLESTEROL, TOTAL 138 mg/dL (0-200); CKMB 0.4 U/L (0.0-3.6); HDL CHOLESTEROL 49 mg/dL (32-96); LDL CHOLESTEROL 60 mg/dL (0-100); LDL-HDL RATIO 1.2 ratio (1.5-3.5); TRIGLYCERIDE 148 mg/dL (30-200); TROPONIN-I < 0.017 ng/mL (0.000-0.060)
[2017-05-20] MEDS ORDERED: ISOSORBIDE MONO60 M1 PO (21:02)
--- NOTE | 2017-05-20 21:18 | NUR ---
BRIANNA DURAN, CALL REPORT FROM ER, PT RECEIVED VIA WHEELCHAIR, COMPLAINS OF CHESTPAIN, IV-RAC, PLACED TELEMTRY ON, WILL START NS @125, PT ASKING FOR SOMETHING TO EAT AND DRRINK, GAVE SANDWICH AND WATER, WILL MAKE NPO AFTER MIDNIGHT
[2017-05-21] VITALS: BP 125/94
--- NOTE | 2017-05-21 01:00 | NUR ---
COMPLAINS OF CHEST PAIN/ N/V GAVE MEDS ORDER
[2017-05-21 04:00] VITALS: BP 129/81
--- NOTE | 2017-05-21 05:16 | NUR ---
PT IS WATCH TV, DENIES ANY NEEDS AT THIS TIME, BED IS LOW, SRX2, CALL LIGHT IN REACH
--- NOTE | 2017-05-21 08:03 | NUR ---
0700- AM ROUNDING- RECEIVED REPORT FROM GEOGRAPHY HEAD NURSE ÁLVARO. PT IS CURRENLTY SITTING UP IN BED WITH EYES OPEN RESTING. PT IS C/O 5/10 CHEST PAIN. IT IS NOT TIME FOR PT TO HAVE ORDERED MORPHINE, WILL GIVE WHEN PT CAN HAVE IT AGAIN ORDERED. PT IS NPO CURRENTLY FOR POSSIBLE CARDIAC CATH TODAY. ON ROOM AIR. ON MONITOR SHOWING SR, HR 76. IV SEEN TO RIGHT AC WITH NS RUNNING AT 125CC. PT APPEARS TO BE VERY HARD OF HEARING. NO FURTHER NEED AT THIS TIME. WILL CONTINUE TO MONITOR AND CONTINUE WITH PLAN OF CARE.
[2017-05-21 08:34] VITALS: BP 106/63
--- NOTE | 2017-05-21 09:04 | NUR ---
CONSENTS FOR PROCEDURE SIGNED BY PT AND PLACED IN CHART. PT HAS BEEN NPO.
[2017-05-21 09:10] LABS: BASOPHILS 0.6 % (0-2); EOSINOPHILS 2.8 % (0-7); HEMATOCRIT 41.4 % (42.0-54.0); HEMOGLOBIN 13.9 g/dL (13.5-17.5); IMMATURE GRANULOCYTES 0.8 % (0-5); LYMPHOCYTES 43.4 % (15-50); MCHC 33.6 g/dL (31.0-37.0); MCV 95.2 fL (80.0-100.0); MEAN PLATELET VOLUME 8.9 fL (7.4-10.4); MONOCYTES 8.4 % (2-11); PLATELET COUNT 157 10x3/uL (130-400); RBC 4.35 10x6/uL (4.20-6.10); RDW 12.6 % (11.5-14.5); WBC 7.2 10x3/uL (4.8-10.8)
[2017-05-21 09:23] LABS: ANION GAP 11.5 mmol/L (8-16); CALCIUM 8.9 mg/dL (8.5-10.1); CARBON DIOXIDE 27.6 mmol/L (21.0-32.0); CREATININE - SERUM 1.3 mg/dL (0.6-1.3); POTASSIUM - SERUM 4.1 mmol/L (3.5-5.1)
--- NOTE | 2017-05-21 10:36 | NUR ---
PT GIVEN PRE-OP MEDICATIONS WITH SIP OF WATER. IV FLUIDS HUNG AND TUBING PRIMED.
--- NOTE | 2017-05-21 11:50 | NUR ---
1130- PT TO CEMENT BREAKER VIA BED.
[2017-05-21] MEDS ORDERED: PLAVIX75 MG PO (12:49)
--- NOTE | 2017-05-21 12:49 | NUR ---
PT BACK FROM FILING OR REGISTRY CLERK VIA BED. PT IS DROWSY BUT ABLE TO RESPOND. PT INSTRUCTED TO LIE FLAT FOR 4 HOURS. PT AGREES. CLEAN, DRY, AND INTACT DRESSING SEEN TO RIGHT GROIN AREA. VITAL SIGNS STARTED PER PROTOCOL. WILL CONTINUE TO MONITOR.
--- NOTE | 2017-05-21 13:20 | NUR ---
RIGHT GROIN SITE ASSESSED WITH NO BLEEDING SEEN. PT IS LAYING FLAT. GUEST ARE AT BEDSIDE. NO NEED AT THIS TIME. WILL CONTINUE TO MONITOR.
--- NOTE | 2017-05-21 15:28 | NUR ---
PT IS LAYING IN BED ON BACK WITH EYES OPEN RESTING. THIS NURSE SLIGHTLY RAISED HOB. PT IS TRYING TO USE URINAL. PT IS AWARE THAT HE HAS TO LIE FLAT UNTIL 1615 ORDERED. VITAL SIGNS ARE BEING TAKEN PER PROTOCOL. WILL CONTINUE TO MONITOR.
--- NOTE | 2017-05-21 16:33 | NUR ---
D/C INSTRUCTIONS EXPLAINED TO PT. D/C PAPERWORK SIGNED BY PT AND PLACED IN CHART. RIGHT GROIN DRESSING IS CLEAN, DRY, AN INTACT WITH NO BLEEDING SEEN. IV TO RIGHT AC REMOVED WITH CATH TIP INTACT. TOLERATED WELL. HEART MONITOR REMOVED AND RETURNED TO [facility] IN TELEMETRY. AWAITING PT TO GET DRESSED.
--- NOTE | 2017-05-21 17:16 | NUR ---
CAESAR RN CHECKED PTS RIGHT GROIN. ROGER MAYNARD STATES NO BLEEDING SEEN FROM DRESSING.
--- NOTE | 2017-05-21 17:18 | NUR ---
ROGER MAYNARD CHECKED PTS RIGHT GROIN. ROGER MAYNARD STATES NO BLEEDING SEEN FROM DRESSING. PT D/C VIA WHEELCHAIR.
--- NOTE | 2017-05-22 16:42 | OP ---
PATIENT NAME: ANDRE PATIÑO MEDICAL RECORD: [id number] :72 LOCATION:D.M2 D.2138 ADMISSION DATE:05/20/17 SURGEON: FRANCO ONTIVEROS MD DATE OF OPERATION: 05/21/2017 PROCEDURES: 1. PTCA stent to LAD diagonal. 2. Left heart catheterization. 3. Selective coronary angiography. 4. Left ventriculogram. INDICATION: Angina and coronary artery disease. PROCEDURE IN DETAIL: After informed consent was obtained and after detailed explanation of risks, benefits as well as alternative therapies, the patient elected to proceed with angiogram and angioplasty. The right femoral area was prepped and draped in normal sterile fashion. The right femoral artery was cannulated via modified Seldinger technique with placement of 6-Welsh sheath. All catheters exchanged through this sheath. FINDINGS: Left ventriculogram was performed in standard 30-degree VARGAS view, reveals good cardiac wall motion throughout all segments. Overall ejection fraction estimated at 55%. SELECTIVE CORONARY ANGIOGRAPHY: 1. Left main showed no significant angiographic disease. 2. Left anterior descending has previously placed stents, these are widely patent with no significant restenosis. However, there is a diagonal that takes off in this area that is 90% stenosed. 3. The left circumflex has moderate irregularities, but no flow-limiting stenosis. 4. Right coronary artery has moderate irregularities, but no flow-limiting stenosis. PTCA STENT OF THE LAD DIAGONAL: The stent used was a 2.25 x 22 mm Ravin. Result was 0% residual stenosis. OVERALL IMPRESSION: Successful percutaneous transluminal coronary angioplasty stent of the left anterior descending diagonal going from 90% initial stenosis to 0% residual. TRANSINT:[id number] Voice Confirmation ID: [id number] DOCUMENT ID: [id number] FRANCO ONTIVEROS MD at 1642 CC: [id number] DICTATION DATE: 05/21/17 1220 COST ACCOUNTING MANAGER: 05/21/17 1337 DIS IN 05/21/17 [place] [id number] [place] [id number]
== END 2017-05-21 17:19 | disposition home or self-care (01) ==
LOC: OBSVTIME → D.ER 18:32 → D.OPS 18:32 → D.M2 20:07 → OBSVTIME 20:07 → D.ER 20:07 → EDSTATUS 05-21 11:15 → D.M2 05-21 15:48 → D.SDCHOLD 05-21 15:48 → D.M2 05-21 15:51 → D.SDCHOLD 05-21 15:51 → D.M2 05-21 17:19 → D.OPS 05-21 17:19
PROVIDERS: Family Medicine; Internal Medicine Interventional Cardiology
DX: I25.118 Atherosclerotic heart disease of native coronary artery with other forms of angina pectoris (principal); I10 Essential (primary) hypertension; Z87.891 Personal history of nicotine dependence; K21.9 Gastro-esophageal reflux disease without esophagitis; D72.829 Elevated white blood cell count, unspecified
CPT/HCPCS: 93458; C9600

== ENCOUNTER 2017-05-22 23:14 | Inpatient (IN) | payer MEDICARE ==
[~2017-05-22 23:14] MED LIST changes: +ISOSORBIDE MONO60 M1 PO
[2017-05-22 23:38] LABS: BASOPHILS 0.2 % (0-2); EOSINOPHILS 0.3 % (0-7); HEMATOCRIT 39.6 % (42.0-54.0); HEMOGLOBIN 13.7 g/dL (13.5-17.5); IMMATURE GRANULOCYTES 0.5 % (0-5); MCH 32.4 pg (26.0-34.0); MCHC 34.6 g/dL (31.0-37.0); MCV 93.6 fL (80.0-100.0); MONOCYTES 9.8 % (2-11); NEUTROPHILS 75.2 % (40-80); PLATELET COUNT 160 10x3/uL (130-400); RBC 4.23 10x6/uL (4.20-6.10); RDW 12.5 % (11.5-14.5)
[2017-05-22 23:41] LABS: WBC 16.7 10x3/uL (4.8-10.8)
[2017-05-22 23:50] LABS: ALBUMIN 3.9 g/dL (3.4-5.0); ANION GAP 15.4 mmol/L (8-16); BILIRUBIN - TOTAL 1.3 mg/dL (0.2-1.3); CALCIUM 9.3 mg/dL (8.5-10.1); CARBON DIOXIDE 24.6 mmol/L (21.0-32.0); CREATININE - SERUM 1.5 mg/dL (0.6-1.3)
[2017-05-22 23:59] LABS: CHOL - HDL RATIO 2.4 ratio (2.3-4.9); CKMB 0.3 U/L (0.0-3.6); LDL-HDL RATIO 1.1 ratio (1.5-3.5); TROPONIN-I 0.056 ng/mL (0.000-0.060)
--- NOTE | 2017-05-23 02:35 | NUR ---
RECIEVED TO ROOM 2124 FROM E.R. VIA W/C. PT A&O. UP AD PHUONG. GAIT STEADY. VITALS STABLE, RESPERATIONS EVEN ON RA. IV TO RIGHT FOREARM WITH NS INFUSING AT 50 CC/HR, SITE CLEAN AND DRY. 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 NO SWELLING OR HEMATOMA NOTED. PEDAL PULSES PRESENT. PTS FAMILY AT BED SIDE. BED LOW, CL IN REACH. WILL CONT TO MONITOR.
--- NOTE | 2017-05-23 03:41 | NUR ---
ZOFRAN 4 MG AND MORPHINE 4 MG GIVEN FOR C/O PAIN AND NAUSEA, RATES PAIN AT A 7 ON PAIN SCALE.
--- NOTE | 2017-05-23 07:35 | NUR ---
ASSESSMENT DONE. DENIES NEEDS.
[2017-05-23 08:35] VITALS: BP 105/61
--- NOTE | 2017-05-23 10:20 | NUR ---
RESTS WITH EYES CLOSED. RESP UL ON . CALL LIGHT IN REACH. WILL CONT. PLAN OF CARE.
[2017-05-23 11:19] LABS: APPEARANCE SLT CLOUDY (CLEAR); BILIRUBIN NEGATIVE (NEGATIVE); COLOR DK YELLOW (YELLOW); GLUCOSE NEGATIVE (NEGATIVE); KETONE MODERATE mg/dL (NEGATIVE); NITRITE POSITIVE (NEGATIVE); PROTEIN TRACE mg/dL (NEGATIVE); SPECIFIC GRAVITY 1.015 (1.005-1.020)
[2017-05-23 11:20] LABS: BACTERIA MANY /hpf (NONE SEEN); EPITHELIAL CELLS 0-5 /hpf (0-5); MUCUS <1+ /lpf (NONE SEEN)
[2017-05-23 16:44] VITALS: BP 92/53
--- NOTE | 2017-05-23 17:09 | NUR ---
WITHOUT CHANGES OR DISTRESS NOTED AT THIS TIME. DENIES NEEDS.
[2017-05-23 19:00] VITALS: BP 120/63
--- NOTE | 2017-05-24 00:55 | NUR ---
MORPHINE 4 MG GIVEN FOR C/O PAIN
--- NOTE | 2017-05-24 02:24 | NUR ---
CALL LIGHT IN REACH. WILL CONTINUE WITH PLAN OF CARE. 83 SR ON TELEMETRY
--- NOTE | 2017-05-24 04:33 | NUR ---
RESTING WITH EYES CLOSED, RESPERTAIONS EVEN, NO S/S DISTRESS NOTED.
--- NOTE | 2017-05-24 09:28 | NUR ---
IV PATENT. CALL LIGHT IN REACH. ROSA ELENA NEEDS AT THIS TIME. WILL CONT. PLAN OF CARE.
[2017-05-24 10:22] VITALS: BP 118/79
[2017-05-24 10:28] LABS: BASOPHILS 0.5 % (0-2); EOSINOPHILS 3.7 % (0-7); IMMATURE GRANULOCYTES 0.8 % (0-5); LYMPHOCYTES 20.8 % (15-50); MCH 32.1 pg (26.0-34.0); MCHC 33.3 g/dL (31.0-37.0); MEAN PLATELET VOLUME 9.4 fL (7.4-10.4); MONOCYTES 6.5 % (2-11); NEUTROPHILS 67.7 % (40-80); PLATELET COUNT 139 10x3/uL (130-400); RBC 4.05 10x6/uL (4.20-6.10); RDW 12.8 % (11.5-14.5)
[2017-05-24 10:30] LABS: MCV 96.3 fL (80.0-100.0); WBC 8.7 10x3/uL (4.8-10.8)
[2017-05-24 12:08] VITALS: BP 103/61
[2017-05-24 15:26] VITALS: BP 104/55
--- NOTE | 2017-05-24 17:49 | NUR ---
WITHOUT CHANGES OR DISTRESS NOTED AT THIS TIME. DENIES NEEDS.
--- NOTE | 2017-05-24 18:33 | NUR ---
PTS FAMILY AT DESK ASKING IF PT CAN HAVE SOMETHING STRONGER FOR PAIN, BECAUSE THE TYLENOL THAT WAS GIVEN AT 1754 HASNT HELPED, INFORMED FAMILY THAT WE WILL BE IN ROOM IN A MOMENT TO ASSESS PT AND OBTAIN A NEW SET OF VITALS AND REASSESS SITUATION.
--- NOTE | 2017-05-24 19:04 | NUR ---
ENTERED ROOM, PT SITTING UP IN BED EATING POPEYES CHICKEN THAT FAMILY HAS BROUGHT UP TO HIM. PT ASKING FOR STRONGER MEDICICINE THAN TYLENOL FOR CHEST PAIN, RATED AT A 4 ON PAIN SCALE AND PT ALSO C/O OF HEADACHE. VITALS STABLE, PT SR ON MONITOR. MORPHINE 4 MG AND ZOFRAN 8 MG GIVEN IVP TO RIGHT AC, WILL CONT TO MONITOR.
[2017-05-24 20:00] VITALS: BP 117/80
--- NOTE | 2017-05-24 20:36 | NUR ---
HS MEDS GIVEN WITH FRESH ICE WATER, NO OTHER NEEDS EXPRESSED AT THIS TIME.
[2017-05-25] VITALS: BP 127/83
--- NOTE | 2017-05-25 03:29 | NUR ---
RESTING WITH EYES CLOSED, RESPERATIONS EVEN, NO S/S DISTRESS NOTED.
[2017-05-25 04:00] VITALS: BP 114/70
--- NOTE | 2017-05-25 05:39 | NUR ---
LYING IN BED WITH CALL LIGHT IN REACH. WILL CONTINUE WITH PLAN OF CARE.
--- NOTE | 2017-05-25 07:58 | NUR ---
ASSESSMENT DONE. DENIES NEEDS.
[2017-05-25 08:00] VITALS: BP 115/77
--- NOTE | 2017-05-25 08:49 | NUR ---
IV PATENT. CALL LIGHT IN REACH. ROSA ELENA NEEDS AT THIS TIME. WILL MONITOR.
[2017-05-25 12:00] VITALS: BP 108/68
[2017-05-25] MEDS ORDERED: HYDROCODON-ACE1 EAC7 PO (14:03)
[2017-05-25] MEDS ORDERED: CIPRO250 MG PO (14:03)
--- NOTE | 2017-05-25 14:23 | NUR ---
DC AND RX GIVEN TO PT
--- NOTE | 2017-05-25 14:28 | NUR ---
DC HOME PER PERSONAL CAR
== END 2017-05-25 14:28 | disposition home or self-care (01) | DRG 690 ==
LOC: D.ER 23:14 → OBSVTIME 05-23 02:10 → D.M2 05-23 02:10
PROVIDERS: Emergency Medicine; ADMIT Internal Medicine Cardiovascular Disease
DX: N39.0 Urinary tract infection, site not specified (principal); I25.118 Atherosclerotic heart disease of native coronary artery with other forms of angina pectoris; Z95.5 Presence of coronary angioplasty implant and graft; I10 Essential (primary) hypertension

== ENCOUNTER 2017-06-07 14:24 | Emergency (ER) | payer MEDICARE ==
[~2017-06-07 14:24] MED LIST changes: +CIPRO250 MG PO; +HYDROCODON-ACE1 EAC7 PO
[2017-06-07 15:07] LABS: BASOPHILS 0.6 % (0-2); HEMATOCRIT 43.7 % (42.0-54.0); HEMOGLOBIN 14.9 g/dL (13.5-17.5); IMMATURE GRANULOCYTES 0.8 % (0-5); LYMPHOCYTES 27.3 % (15-50); MCH 31.6 pg (26.0-34.0); MCHC 34.1 g/dL (31.0-37.0); MCV 92.8 fL (80.0-100.0); MEAN PLATELET VOLUME 9.2 fL (7.4-10.4); MONOCYTES 6.2 % (2-11); NEUTROPHILS 63.1 % (40-80); PLATELET COUNT 210 10x3/uL (130-400); RBC 4.71 10x6/uL (4.20-6.10); RDW 12.2 % (11.5-14.5); WBC 7.9 10x3/uL (4.8-10.8)
[2017-06-07 15:22] LABS: ALBUMIN 3.9 g/dL (3.4-5.0); ALKALINE PHOSPHATASE 72 U/L (46-116); ALT (SGPT) 46 U/L (10-68); BILIRUBIN - TOTAL 0.73 mg/dL (0.2-1.3); CALC OSMOLALITY 280 mosm/kg (275-300); CARBON DIOXIDE 28.4 mmol/L (21.0-32.0); CHLORIDE - SERUM 103 mmol/L (98-107); CREATININE - SERUM 1.2 mg/dL (0.6-1.3); GLUCOSE 130 mg/dL (74-106); POTASSIUM - SERUM 4.2 mmol/L (3.5-5.1); PROTEIN - SERUM 7.2 g/dL (6.4-8.2); SODIUM 139 mmol/L (136-145); UREA NITROGEN 14 mg/dL (7-18); eGFR NON AFRICAN AMERICAN 69 mL/min (90-120)
[2017-06-07 15:36] LABS: CHOLESTEROL, TOTAL 147 mg/dL (0-200); CKMB 0.5 U/L (0.0-3.6); CREATINE KINASE 47 UL (21-232); HDL CHOLESTEROL 49 mg/dL (32-96); LDL CHOLESTEROL 67 mg/dL (0-100); LDL-HDL RATIO 1.4 ratio (1.5-3.5); TRIGLYCERIDE 158 mg/dL (30-200)
[2017-06-07 15:37] LABS: TROPONIN-I < 0.017 ng/mL (0.000-0.060)
== END 2017-06-07 18:35 | disposition home or self-care (01) ==
LOC: D.ER 14:24
PROVIDERS: Family Medicine
DX: R07.9 Chest pain, unspecified (principal); I25.10 Atherosclerotic heart disease of native coronary artery without angina pectoris; I10 Essential (primary) hypertension; K21.9 Gastro-esophageal reflux disease without esophagitis; I45.10 Unspecified right bundle-branch block; I44.4 Left anterior fascicular block

== ENCOUNTER 2017-06-22 17:55 | Emergency (ER) | payer MEDICARE ==
[2017-06-22 18:41] LABS: BASOPHILS 0.5 % (0-2); EOSINOPHILS 3.1 % (0-7); HEMATOCRIT 44.9 % (42.0-54.0); HEMOGLOBIN 15.5 g/dL (13.5-17.5); IMMATURE GRANULOCYTES 0.7 % (0-5); LYMPHOCYTES 27.2 % (15-50); MCH 32.1 pg (26.0-34.0); MCHC 34.5 g/dL (31.0-37.0); MEAN PLATELET VOLUME 9.2 fL (7.4-10.4); MONOCYTES 8.1 % (2-11); NEUTROPHILS 60.4 % (40-80); PLATELET COUNT 183 10x3/uL (130-400); RBC 4.83 10x6/uL (4.20-6.10); RDW 12.2 % (11.5-14.5); WBC 9.2 10x3/uL (4.8-10.8)
[2017-06-22 18:54] LABS: ALBUMIN 4.3 g/dL (3.4-5.0); ALKALINE PHOSPHATASE 78 U/L (46-116); ALT (SGPT) 40 U/L (10-68); BILIRUBIN - TOTAL 0.46 mg/dL (0.2-1.3); CALC OSMOLALITY 274 mosm/kg (275-300); CALCIUM 9.5 mg/dL (8.5-10.1); CARBON DIOXIDE 26.9 mmol/L (21.0-32.0); CHLORIDE - SERUM 101 mmol/L (98-107); CREATININE - SERUM 1.2 mg/dL (0.6-1.3); GLUCOSE 130 mg/dL (74-106); POTASSIUM - SERUM 4.3 mmol/L (3.5-5.1); PROTEIN - SERUM 7.7 g/dL (6.4-8.2); SODIUM 136 mmol/L (136-145); UREA NITROGEN 15 mg/dL (7-18); eGFR NON AFRICAN AMERICAN 69 mL/min (90-120)
[2017-06-22 19:09] LABS: CHOL - HDL RATIO 3.3 ratio (2.3-4.9); CHOLESTEROL, TOTAL 161 mg/dL (0-200); CKMB 0.4 U/L (0.0-3.6); CREATINE KINASE 57 UL (21-232); HDL CHOLESTEROL 49 mg/dL (32-96); LDL CHOLESTEROL 66 mg/dL (0-100); LDL-HDL RATIO 1.3 ratio (1.5-3.5); TRIGLYCERIDE 233 mg/dL (30-200)
[2017-06-22 19:11] LABS: TROPONIN-I < 0.017 ng/mL (0.000-0.060)
[2017-06-22 20:23] LABS: APPEARANCE CLEAR (CLEAR); BILIRUBIN NEGATIVE (NEGATIVE); COLOR YELLOW (YELLOW); GLUCOSE NEGATIVE (NEGATIVE); KETONE NEGATIVE (NEGATIVE); NITRITE NEGATIVE (NEGATIVE); PROTEIN NEGATIVE (NEGATIVE); SPECIFIC GRAVITY 1.015 (1.005-1.020); UROBILINOGEN NORMAL (NORMAL)
[2017-06-22 20:29] LABS: UDS - AMPHET NEGATIVE QUAL (NEGATIVE); UDS - BARB NEGATIVE QUAL (NEGATIVE); UDS - BENZO NEGATIVE QUAL (NEGATIVE); UDS - COCAINE NEGATIVE QUAL (NEGATIVE); UDS - OPIATE NEGATIVE QUAL (NEGATIVE); UDS - PCP NEGATIVE QUAL (NEGATIVE); UDS - THC NEGATIVE QUAL (NEGATIVE)
== END 2017-06-22 21:10 | disposition home or self-care (01) ==
LOC: D.ER 17:55
PROVIDERS: Emergency Medicine; Nurse Practitioner Family
DX: F41.9 Anxiety disorder, unspecified (principal); Z98.890 Other specified postprocedural states; I10 Essential (primary) hypertension; K21.9 Gastro-esophageal reflux disease without esophagitis; R00.0 Tachycardia, unspecified; I45.10 Unspecified right bundle-branch block

== ENCOUNTER 2017-09-10 14:24 | Emergency (ER) | payer MEDICARE ==
[2017-09-10 15:16] LABS: HEMATOCRIT 43.4 % (42.0-54.0); HEMOGLOBIN 15.2 g/dL (13.5-17.5); LYMPHOCYTES 25.6 % (15-50); MCH 31.4 pg (26.0-34.0); MCV 89.7 fL (80.0-100.0); MEAN PLATELET VOLUME 8.4 fL (7.4-10.4); NEUTROPHILS 65.8 % (40-80); PLATELET COUNT 202 10x3/uL (130-400); RBC 4.84 10x6/uL (4.20-6.10); RDW 12.4 % (11.5-14.5); WBC 9.1 10x3/uL (4.8-10.8)
[2017-09-10 15:34] LABS: ALBUMIN 4.1 g/dL (3.4-5.0); ALKALINE PHOSPHATASE 75 U/L (46-116); ALT (SGPT) 56 U/L (10-68); BILIRUBIN - TOTAL 0.54 mg/dL (0.2-1.3); CALC OSMOLALITY 273 mosm/kg (275-300); CALCIUM 8.8 mg/dL (8.5-10.1); CARBON DIOXIDE 26.6 mmol/L (21.0-32.0); CHLORIDE - SERUM 102 mmol/L (98-107); CREATININE - SERUM 1.3 mg/dL (0.6-1.3); GLUCOSE 148 mg/dL (74-106); POTASSIUM - SERUM 4.3 mmol/L (3.5-5.1); PROTEIN - SERUM 7.6 g/dL (6.4-8.2); SODIUM 136 mmol/L (136-145); UREA NITROGEN 10 mg/dL (7-18); eGFR NON AFRICAN AMERICAN 63 mL/min (90-120)
[2017-09-10 15:44] LABS: CREATINE KINASE 87 UL (21-232)
[2017-09-10 15:45] LABS: TROPONIN-I < 0.017 ng/mL (0.000-0.060)
== END 2017-09-10 16:45 | disposition home or self-care (01) ==
LOC: D.ER 14:24
PROVIDERS: Family Medicine
DX: R07.81 Pleurodynia (principal); Z86.79 Personal history of other diseases of the circulatory system; R00.0 Tachycardia, unspecified; I45.10 Unspecified right bundle-branch block; I44.4 Left anterior fascicular block

== ENCOUNTER 2017-09-26 07:33 | Outpatient (CLI) | payer MEDICARE ==
[~2017-09-26] VITALS: Ht 170.2 cm; Wt 90.9 kg
--- NOTE | ~2017-09-26 | HEMODYNAMI ---
PATIENT:ANDRE PATIÑO MEDICAL RECORD: [id number] : 72 LOCATION:DALINE ADMISSION DATE: 09/26/17 Generatedon:09/26/201711:46 Patient name: ANDRE PATIÑO Patient #: [id number] : 1970 Date of study: 09/26/2017 Page: Of Hemodynamic Procedure Report Patient Data Patient Demographics Procedure consent was obtained First Name: ANDRE Gender: Male Last Name: HAROON : 1970 [facility] Initial: JOJO Age: 47 year(s) Patient #: [id number] Race: SSN: [id number] Additional ID: [id number] Contact details [address]: [address] [place] [address] State: [place] City: [place] Zip code: [address] Past Medical History Allergies Allergen Reaction Date Comments Reported Other allergy 09/26/2017 Codeine, Promethazine, Guaifenesin. Admission Admission Data Admission Date: 09/26/2017 Admission Time: 7:33 Admit Source: Other Lab Results Lab Result Date: 09/26/2017 Lab Result Time: 8:00 Biochemistry Name Units Result Min Max BUN mg/dl 14 --(--*-)-- 7 18 Creatinine mg/dl 1.4 --(----)*- 0.6 1.3 CBC Name Units Result Min Max Hematocrit % 46.5 --(-*--)-- 42 54 Hemoglobin g/dl 16.1 --(--*-)-- 13.5 17.5 Procedure Procedure Types Cath Procedure Diagnostic Procedure [facility] w/Coronaries FFR/IVUS Intra-Coronary IVUS Initial Sedation Charges Moderate Sedation up to 15 minutes PCI Procedure Coronary Stent Coronary Stent Initial Procedure Description Procedure Date Procedure Date: 09/26/2017 Procedure Start Time: 11:27 Procedure End Time: 11:45 Procedure Staff Name Function Lj Zamorano MD Performing Physician Audi Puri RN Nurse Ulices Redd RT Monitor Prateek Agustin RT Scrub Procedure Data Cath Procedure Fluoroscopy Diagnostic fluoroscopy Total fluoroscopy Time: 3.3 time: 3.3 min min Diagnostic fluoroscopy Total fluoroscopy dose: dose: 264.32 mGy 264.32 mGy Contrast Material Contrast Material Type Amount (ml) Isovue 300 89 Entry Location Entry Primary Successful Side Size Upsize Upsize Entry Closure Succes sful Closure Location (Fr) 1 (Fr) 2 (Fr) Remarks Device Remarks Femoral Right 5 Fr 6 Fr Exoseal artery Short Estimated blood loss: 10 ml Diagnostic catheters Device Type Used For End Catheter Placement MULTIPACK Pigtail 5 Fr Procedure catheter MULTIPACK JL 4.0 5Fr Procedure catheter MULTIPACK 3DRC 5Fr Procedure catheter Procedure Complications No complications Procedure Medications Medication Administration Route Dosage Oxygen NC 2 l/min Heparin Flush Bag added to field 2 bags (1000units/500ml NS) 0.9% NaCl I.V. 100 ml/hr Fentanyl I.V. 100 mcg Versed I.V. 2 mg Fentanyl I.V. 100 mcg Versed I.V. 2 mg Fentanyl I.V. 100 mcg Versed I.V. 2 mg Heparin Bolus I.V. 4000 units Hemodynamics Rest HGB: 16.1 (g/dl) Heart Rate: 90 (bpm) Pressure Samples Time Site Value (mmHg) Purpose Heart Use Rate(bpm) 11:28 LV 36/-1,-1 Snapshot 82 11:28 LV 114/26,24 Snapshot 59 Snapshots Pre Cath Intra NCS Post Cath Vital Signs Time Heart Resp SPO2 etCO2 NIBP (mmHg) Rhythm Pain Sedation Rate (ipm) (%) (mmHg) Status Level (bpm) 10:46:25 93 16 96 28.6 114/72(94) NSR 0 (11) 10(A) , No pain 10:50:37 84 15 92 39.2 121/73(115) NSR 0 (11) 10(A) , No pain 10:54:49 90 16 93 35.4 103/81(94) NSR 0 (11) 10(A) , No pain 10:58:57 84 16 90 43.7 111/72(99) NSR 0 (11) 10(A) , No pain 11:03:04 83 16 92 46 112/69(110) NSR 0 (11) 10(A) , No pain 11:07:12 83 17 92 44.5 113/76(101) NSR 0 (11) 10(A) , No pain 11:11:16 84 16 88 42.2 106/75(91) NSR 0 (11) 10(A) , No pain 11:15:22 84 16 78 31.7 120/77(102) NSR 0 (11) 10(A) , No pain 11:20:21 83 17 96 46 147/101(132) NSR 0 (11) 10(A) , No pain 11:24:26 82 17 96 40 133/92(108) NSR 0 (11) 10(A) , No pain 11:29:44 95 16 89 46 140/87(109) NSR 0 (11) 9(A) , No pain 11:34:00 101 16 90 70.1 139/85(100) NSR 0 (11) 9(A) , No pain 11:39:01 99 16 89 61.8 134/85(111) NSR 0 (11) 9(A) , No pain 11:44:12 101 14 89 54.3 127/82(96) NSR 0 (11) 9(A) , No pain Medications Time Medication Route Dose Verified Delivered Reason Notes Effectiveness by by 11:06:57 Oxygen NC 2 Lj Audi Per physician l/min Jaun Puri RN 11:07:05 Heparin Flush added 2 Lj Huntley used for Bag to bags Jaun Puri devops architect (1000units/500ml field NS) 11:07:16 0.9% NaCl I.V. 100 Lj Huntley Per physician ml/hr Jaun Puri RN 11:20:20 Fentanyl I.V. 100 Lj Audi for sedation mcg Jaun Puri RN 11:20:24 Versed I.V. 2 mg Lj Huntley for sedation Jaun Puri RN 11:25:42 Fentanyl I.V. 100 Lj Audi for sedation mcg Jaun Puri RN 11:25:44 Versed I.V. 2 mg Lj Audi for sedation Jaun Puri RN 11:29:06 Fentanyl I.V. 100 Lj Audi for sedation mcg Jaun Puri RN 11:29:09 Versed I.V. 2 mg Lj Audi for sedation Tauth MD Puri RN 11:33:38 Heparin Bolus I.V. Usman Huntley for units Jaun Puri RN anticoagulation Procedure Log Time Note 10:10:47 Audi Puri RN sent for patient. Start room use. 10:16:48 Time tracking: Regular hours 10:16:51 Plan of Care:Hemodynamics will remain stable., Cardiac rhythm will remain stable., Comfort level will be maintained., Respiratory function will remain adequate., Patient/ family verbilizes understanding of procedure., Procedure tolerated without complication., Recovers from procedure without complications.. 10:20:51 H&P Date Dictated: 09/10/2017 Within 30 days and on chart., H&P Addendum completed by physician on day of procedure. (MUST COMPLETE FOR ALL OUTPATIENTS). 10:23:07 Diagnostic Cath status Elective 10:23:13 Admit Source: Other 10:30:29 Patient received from Pre/Post Procedure Room to CCL 3 Alert and oriented. Tansferred to table in Supine position. 10:38:06 Vital chart was started 10:40:30 Warm blankets applied, and alberto hugger turned on for patient comfort. 10:40:30 Correct patient and procedure confirmed by team. 10:40:31 Signed procedure consent form obtained from patient. 10:40:32 ECG and BP/O2 sat monitors applied to patient. 10:40:35 Vital chart was stopped 10:40:41 Vital chart was started 10:46:34 Baseline sample Acquired. 10:46:39 Rhythm: sinus rhythm 10:46:54 Full Disclosure recording started 10:47:09 Pre-procedure instructions explained to patient. 10:47:10 Pre-op teaching completed and patient verbalized understanding. 10:47:12 Family in waiting room. 10:47:13 Patient NPO since Midnight. 10:47:33 Patient allergic to Other allergyCodeine, Promethazine, Guaifenesin. 10:47:35 Is the patient allergic to Iodine/contrast media? No. 10:47:36 Is patient on blood thinner?Yes 10:47:38 ACC The patient was administered the following blood thiners within the last 24 hours: ACCPlavix 10:47:40 Patient diabetic? No. 10:47:52 Previous problem with sedation/anesthesia? No ? 10:47:56 Snore? Yes 10:47:56 Sleep apnea? No 10:47:58 Deviated septum? No 10:47:59 Opens mouth fully? Yes 10:47:59 Sticks out tongue? Yes 10:48:01 Airway obstruction? No ? 10:48:03 Dentures? Yes out 10:48:07 Pre procedure: right dorsailis pedis pulse 2+ Normal; easily identifiable; not easily obliterated 10:48:38 Patient pain scale 1/10 ?. 10:48:44 IV patent on arrival in left antecubital with 0.9% NaCl at [facility]. 10:49:22 Lab Result : BUN 14 mg/dl 10:49:22 Lab Result : Creatinine 1.4 mg/dl 10:49:22 Lab Result : Hemoglobin 16.1 g/dl 10:49:22 Lab Result : Hematocrit 46.5 % 10:49:30 Lab results completed and on chart. 10:49:33 Right groin area was prepped with chlora-prep and draped in sterile fashion 10:49:36 Alarms reviewed by R. N. 10:49:37 Sharps counted by scrub and verified by R.N. 10:49:39 Use device set Femoral Dx 10:49:40 ACIST Syringe (82069) opened to sterile field. 10:49:43 ACIST Hand Control (29777) opened to sterile field. 10:49:44 ACIST Manifold (93576) opened to sterile field. 10:49:46 Bag Decanter (2001S) opened to sterile field. 10:49:46 Medline Cath Pack ([id number]) opened to sterile field. 10:49:51 Tegaderm 4 x 4 (1626W) opened to sterile field. 10:49:52 PERCUTANEOUS ENTRY 19GA needle opened to sterile field. 10:49:54 DIAGNOSTIC Multipack 5Fr catheter set (MW5356) opened to sterile field. 10:49:55 SHEATH 5FR Beasley (SAN226) opened to sterile field. 10:49:55 DIAGNOSTIC WIRE .035 260cm J wire (449711) opened to sterile field. 10:56:49 Zero performed for pressure channel P1 11:06:57 Oxygen 2 l/min NC was administered by Audi Puri RN; Per physician; 11:07:05 Heparin Flush Bag (1000units/500ml NS) 2 bags added to field was administered by Audi Puri RN; used for procedure; ::16 0.9% NaCl 100 ml/hr I.V. was administered by Audi Puri RN; Per physician; ::59 Final Timeout: patient, procedure, and site verified with staff and physician. All members of the team are in agreement. :59 --------ALL STOP TIME OUT------ ::59 Physician arrived 11:16: Right groin site verified by team. 11:16:03 Physical assessment completed. ASA score P 2 - A patient with mild systemic disease as per Lj Zamorano MD. :16: Sedation plan: IV Moderate Sedation Medication:Versed, Fentanyl 11:20:20 Fentanyl 100 mcg I.V. was administered by Audi Puri RN; for sedation; 11:20:24 Versed 2 mg I.V. was administered by Audi Puri RN; for sedation; 11:25:42 Fentanyl 100 mcg I.V. was administered by Audi Puri RN; for sedation; 11:25:44 Versed 2 mg I.V. was administered by Audi Puri RN; for sedation; ::59 Procedure started. 11:27:05 Local anesthetic to right femoral artery with Lidocaine 2% by Lj Zamorano MD.INITIAL ACCESS ONLY 11:27:14 A 5 Fr sheath was inserted into the Right Femoral artery 11:28:23 A MULTIPACK Pigtail 5 Fr catheter was advanced over the wire and used for Procedure. 11:28:40 LV gram done using VARGAS 11::42 Injector settings: Ml/sec: 10, Volume: 20, 11:28:47 EF : 60 % 11:28:51 Catheter exchanged over wire. 11:28:55 A MULTIPACK JL 4.0 5Fr catheter was advanced over the wire and used for Procedure. 11:29:06 Fentanyl 100 mcg I.V. was administered by Audi Puri RN; for sedation; 11:29:09 Versed 2 mg I.V. was administered by Audi Puri RN; for sedation; 11:29:21 LCA angiography performed. 11:30:37 Catheter removed. 11::51 INFLATOR Merit BasixCompak (CF0439) opened to sterile field. 11:30:52 CHOICE PT Extra Support 182cm wire ([id number]) opened to sterile field. 11:30:53 SHEATH 6FR Beasley (AXV305) opened to sterile field. 11:31:15 Sheath upsized to a 6 Fr Short. 11:31:24 A MULTIPACK 3DRC 5Fr catheter was advanced over the wire and used for Procedure. 11:31:29 RCA angiography performed. 11:31:41 Madill Whitfield Eagleye IVUS Catheter (34896T) opened to sterile field. 11:32:55 Catheter removed. 11:33:05 GUIDE 6FR HS II catheter (CI9YCUC) opened to sterile field. 11:33:10 6 Fr HSII guide catheter was inserted over the wire 11:33:18 choice pt es wire advanced. 11:33:34 Wire advanced across lesion. 11:33:37 IVUS catheter advanced over wire. 11:33:38 Heparin Bolus 4000 units I.V. was administered by Audi Puri RN; for anticoagulation; 11:33:39 IVUS pass to RCA lesion performed. 11:35:47 IVUS catheter removed over wire. 11:36:43 Inflation number: 1 A EUPHORA 4.0 x 20 Balloon ([id number]) was prepped and advanced across the Prox RCA, then inflated to 13 LACEY for 0:10 (min:sec). 11:37:10 Inflation number: 2 The EUPHORA 4.0 x 20 Balloon ([id number]) was reinflated across the Prox RCA, to 13 LACEY for 0:10 (min:sec). 11:37:18 Inflation number: 3 The EUPHORA 4.0 x 20 Balloon ([id number]) was reinflated across the Prox RCA, to 13 LACEY for 0:10 (min:sec). 11:37:27 Balloon removed over the wire. 11:40:16 Inflation number: 4 A JUAN F RX 4.0 x 26 stent ([id number]) was prepped and advanced across the Prox RCA, then inflated to 17 LACEY for 0:10 (min:sec). 11:40:21 Stent catheter was removed intact over wire. 11:40:22 Wire removed. 11:40:22 Guide catheter removed. 11:40:44 EXOSEAL 6Fr (EX600) opened to sterile field. 11:40:51 Sheath removed intact; hemostasis achieved with Exoseal to the Right Femoral artery. 11:40:53 Procedure ended.(Physican Out) 11:43:15 Fluoroscopy time 03.30 minutes. 11:43:24 Fluoroscopy dose: 264.32 mGy 11:43:24 Flurop Dose total: 264.32 11:43:29 Contrast amount:Isovue 300 89ml. 11:43:30 Sharps counted by scrub and verified by R.N. 11:44:21 Insertion/operative site no bleeding no hematoma. 11:44:23 Post-op/insertion site Right Femoral artery dressed using a 4 x 4 and Tegaderm. 11:44:26 Post right femoral artery:stable, soft, clean and dry 11:44:28 Post Procedure Pulses reassessed and unchanged 11:44:32 Post-procedure physical assessment completed. ASA score P 2 - A patient with mild systemic disease as per Lj Zamorano MD. 11:44:34 Post procedure rhythm: unchanged. 11:44:37 Estimated blood loss: 10 ml 11:44:39 Post procedure instruction explained to patient.Patient verbalizes understanding. 11:44:40 Patient needs reinforcement of post procedure teaching. 11:44:51 Procedure type changed to Cath procedure, Diagnostic procedure, LHC, LHC w/Coronaries, FFR/IVUS, Intra-Coronary IVUS Initial, Sedation Charges, Moderate Sedation up to 15 minutes, PCI procedure, Coronary Stent, Coronary Stent Initial 11:45:15 Procedure and supply charges have been captured, reviewed, submitted and are correct. 11:45:16 Procedure Complication : No complications 11:45:18 See physician's report for complete and final results. 11:45:19 Report given to Pre/Post Procedure Room. 11:45:21 Patient transfered to Pre/Post Procedure Room with Stretcher. 11:45:26 Procedure ended. 11:45:26 Full Disclosure recording stopped 11:45:42 End room use (Document Last) 11:46:11 Vital chart was stopped Intervention Summary Intervention Notes Time ActionType Lesion and Equipment Used Action# Pressure Duration Attributes 11:36:43 Inflate Prox RCA EUPHORA 4.0 x 1 13 00:10 balloon 20 Balloon ([id number]) 11:37:10 Reinflate Prox RCA EUPHORA 4.0 x 2 13 00:10 balloon 20 Balloon ([id number]) 11:37:18 Reinflate Prox RCA EUPHORA 4.0 x 3 13 00:10 balloon 20 Balloon ([id number]) 11:40:16 Inflate Prox RCA JUAN F RX 4.0 x 4 17 00:10 balloon 26 stent ([id number]) Device Usage Item Name Manufacture Quantity Catalog Number Hospital Part Current M inimal Lot# / Charge Number Stock Stock Serial# Code ACIST Syringe Acist 1 06932 833980 805718 251554 2 0 (57171) Medical Systems Inc ACIST Hand Acist 1 34596 385249 225241 269940 5 Control Medical (76389) Systems Inc ACIST Manifold Acist 1 17590 812166 263479 858912 5 (96247) Medical Systems Inc Bag Decanter Microtek 1 2001S 269697 97715 029577 5 (2001S) Medical Inc. Medline Cath Cardinal 1 [id number] 004986 28907 881900 5 BootstrapLabs ([id number]) Tegaderm 4 x 4 3M 1 1626W 633812 464975 019872 5 (1626W) PERCUTANEOUS Cook Medical 1 E74677 648350 064620 5 ENTRY 19GA needle DIAGNOSTIC Cardinal 1 SM0936 098565 17518 487095 3 0 Multipack 5Fr Health catheter set (OP4144) SHEATH 5FR Terumo 1 ZVX590 573123 254000 978937 4 0 Beasley (ZRG489) DIAGNOSTIC [facility] [place] 1 482229 322301 769813 071260 3 0 WIRE .035 260cm J wire (877340) MULTIPACK Cardinal 1 257482 5 Pigtail 5 Fr Health catheter MULTIPACK JL Cardinal 1 524485 5 4.0 5Fr Health catheter INFLATOR Merit Merit 1 FJ8116 902505 257278 122318 1 5 Noom Medical (KM5998) CHOICE PT [place] 1 [id number] 556804 095885 871821 5 Extra Support Scientific 182cm wire ([id number]) SHEATH 6FR Terumo 1 KVZ863 205010 700521 968832 4 0 Beasley (ERZ427) MULTIPACK 3DRC Cardinal 1 039532 5 5Fr catheter Health [facility] 1 77743Q 425677 704228 127371 8 Whitfield Eagleye IVUS Catheter (61338L) GUIDE 6FR HS Medtronic 1 [id number] 133152 05784 348644 1 II catheter ([id number]) EUPHORA 4.0 x Medtronic 1 [id number] 493346 492031 381040 5 [id number] 20 Balloon ([id number]) JUAN F RX 4.0 x Medtronic 1 [id number] 109513 4607639 670996 5 [id number] 26 stent ([id number]) EXOSEAL 6Fr Cardinal 1 EX600 227061 401313 134792 1 0 (EX600) Health Signature Audit [place] Stage Time Signature Unsigned Intra-Procedure 09/26/2017 Ulices Redd 11:46:06 AM RT(R) Signatures Monitor : Ulices Redd RT Signature : Date : Time : [place] [id number] [place] [address]
--- NOTE | ~2017-09-26 | OP ---
PATIENT NAME: ANDRE PATIÑO MEDICAL RECORD: [id number] :72 LOCATION:D.CAT ADMISSION DATE: SURGEON: FRANCO ONTIVEROS MD DATE OF OPERATION: 09/26/2017 PROCEDURES: 1. PTCA stent to RCA. 2. Intravascular ultrasound. 3. Left heart catheterization. 4. Selective coronary angiography. 5. Left ventriculogram. INDICATION: Angina and coronary artery disease. PROCEDURE IN DETAIL: After informed consent was obtained and after a detailed explanation of the risks, benefits as well as alternative therapies, the patient elected to proceed with angiogram and angioplasty. The right femoral area was prepped and draped in normal sterile fashion. Right femoral artery was cannulated via modified Seldinger technique with placement of 6-Luxembourgish sheath. All catheters exchanged through this sheath. FINDINGS: Left ventriculogram was performed in the standard 30-degree VARGAS view reveals good cardiac wall motion throughout all segments. Overall ejection fraction estimated at 60%. SELECTIVE CORONARY ANGIOGRAPHY: 1. Left main showed no significant angiographic disease. 2. Left anterior descending has previously placed stents. These are widely patent with no significant restenosis. No disease elsewise throughout the LAD. 3. The left circumflex has mild irregularities, but no flow-limiting stenosis. 4. The right coronary artery has previously placed stent. There is up to 70% to 80% percent in-stent restenosis in the mid vessel. PTCA STENT OF THE RIGHT CORONARY ARTERY: The stent used was 4.0 x 26 mm [place]. Result was 0% residual stenosis. OVERALL IMPRESSION: Successful percutaneous transluminal coronary angioplasty stent of the right coronary artery going from 70% to 80% initial stenosis to 0% residual. TRANSINT:[id number] Voice Confirmation ID: [id number] DOCUMENT ID: [id number] FRANCO ONTIVEROS MD at 1153 CC: [id number] DICTATION DATE: 09/26/17 1145 TITLE LAWYER: 09/26/17 1221 [facility] CLI 09/26/[address] [address]
[2017-09-26] MEDS ORDERED: ATIVAN0.5 MG PO (08:04)
[2017-09-26 08:09] VITALS: BP 115/79; Ht 170.2 cm; Wt 90.9 kg
[2017-09-26 08:13] LABS: BASOPHILS 0.8 % (0-2); EOSINOPHILS 3.2 % (0-7); HEMATOCRIT 46.5 % (42.0-54.0); HEMOGLOBIN 16.1 g/dL (13.5-17.5); IMMATURE GRANULOCYTES 1.4 % (0-5); LYMPHOCYTES 32.2 % (15-50); MCH 32.1 pg (26.0-34.0); MCHC 34.6 g/dL (31.0-37.0); MCV 92.6 fL (80.0-100.0); MEAN PLATELET VOLUME 9.2 fL (7.4-10.4); MONOCYTES 8.2 % (2-11); NEUTROPHILS 54.2 % (40-80); PLATELET COUNT 197 10x3/uL (130-400); RBC 5.02 10x6/uL (4.20-6.10); RDW 12.2 % (11.5-14.5); WBC 9.3 10x3/uL (4.8-10.8)
[2017-09-26 08:30] LABS: ANION GAP 12.2 mmol/L (8-16); CALCIUM 9.7 mg/dL (8.5-10.1); CARBON DIOXIDE 28.7 mmol/L (21.0-32.0); CREATININE - SERUM 1.4 mg/dL (0.6-1.3); POTASSIUM - SERUM 3.9 mmol/L (3.5-5.1)
[2017-09-26 13:41] LABS: HEMATOCRIT 43.7 % (42.0-54.0); HEMOGLOBIN 15.2 g/dL (13.5-17.5)
== END 2017-09-26 16:00 | disposition home or self-care (01) ==
LOC: D.CATH 07:33
PROVIDERS: Internal Medicine Interventional Cardiology
DX: I25.10 Atherosclerotic heart disease of native coronary artery without angina pectoris (principal); R07.9 Chest pain, unspecified; I10 Essential (primary) hypertension; F17.200 Nicotine dependence, unspecified, uncomplicated; Z01.812 Encounter for preprocedural laboratory examination
CPT/HCPCS: 93458; 92978; C9600

== ENCOUNTER 2017-10-01 23:44 | Inpatient (IN) | payer MEDICARE ==
[~2017-10-01] VITALS: Ht 170.2 cm; Wt 90.5 kg
--- NOTE | ~2017-10-01 | CN ---
PATIENT NAME:ANDRE PATIÑO MEDICAL RECORD: [id number] : 72 LOCATION:D. D.2121 ADMIT DATE: 10/04/17 ACCOUNT: [id number] CONSULTING PHYSICIAN: FRANCO ONTIVEROS MD REFERRING PHYSICIAN: MARISLO QUIROGA MD DATE OF CONSULTATION: 10/02/2017 DIAGNOSES: 1. Shortness of breath. 2. Cough. 3. Coronary artery disease, recent PTCA stent of the RCA. HISTORY OF PRESENT ILLNESS: Mr. Patiño presents with cough and shortness of breath. He underwent PTCA stent of his RCA last week, his ejection fraction was normal at 60%. There was no other hemodynamically significant disease and excellent result was obtained. PHYSICAL EXAMINATION: GENERAL APPEARANCE: Well-nourished, well-developed, appears stated age. Level of distress, comfortable. PSYCHIATRIC: Mental status, alert, normal affect. Orientation, oriented to time, place and person. EYES: Lids and conjunctiva, noninjected. No discharge, no pallor. ENT: Lips, teeth, gums, normal dentition. Oropharynx, no cyanosis, no pallor. NECK: Carotid arteries, bilateral normal upstroke, no bruits, no thrills. JUGULAR VEINS: No jugular venous pressure or distention. CERVICAL LYMPH NODES: Nontender, nonenlarged. THYROID: Not enlarged. Nontender. No nodules. LUNGS: Respiratory effort, unlabored. CHEST: Normal curvature. No thoracic deformity. No chest wall tenderness. Percussion, resonant. Auscultation, clear. No wheezes, no rales, no rhonchi. CARDIOVASCULAR: Precordial exam, nondisplaced. No heaves or pericardial thrills. Rate and rhythm, regular. Heart sounds, normal S1, normal S2. No S3, no gallop, no rub. Systolic murmur, not heard. Diastolic murmur, not heard. EXTREMITIES: No cyanosis, no edema. Peripheral pulses, full and equal in all extremities, except as noted. No bruits appreciated. ABDOMEN: Soft, nondistended. Normal aorta. No bruit. Nontender. No masses. Liver, nontender, no hepatomegaly. Spleen, nontender, no splenomegaly. MUSCULOSKELETAL: No joint tenderness. No joint swelling. No erythema. NEUROLOGICAL: Normal gait, normal strength, normal tone. SKIN: Warm and dry. OVERALL IMPRESSION: Shortness of breath. This is not cardiac at this time, he has a normal ejection fraction, no significant valvular disease, PTCA stent last week is the only lesion, troponins are normal, and his EKG is unchanged. No other cardiac workup or treatment is necessary. TRANSINT:[id number] Voice Confirmation ID: [id number] DOCUMENT ID: [id number] CONSULT REPORT [id number] ANDRE PATIÑO JEFFREY MD at 1202 CC: [id number] DICTATION DATE: 10/02/17 1613 CUTTER BRAKE LINING: 10/02/17 1633 DIS IN 10/05/17 [facility] [address] [place] [address]
[~2017-10-01 23:44] MED LIST changes: +ATIVAN0.5 MG PO
[2017-10-02 00:51] LABS: BASOPHILS 0.6 % (0-2); EOSINOPHILS 4.3 % (0-7); HEMATOCRIT 39.7 % (42.0-54.0); HEMOGLOBIN 13.3 g/dL (13.5-17.5); IMMATURE GRANULOCYTES 0.5 % (0-5); LYMPHOCYTES 16.6 % (15-50); MCH 31.7 pg (26.0-34.0); MCHC 33.5 g/dL (31.0-37.0); MCV 94.5 fL (80.0-100.0); MEAN PLATELET VOLUME 9.2 fL (7.4-10.4); MONOCYTES 8.8 % (2-11); NEUTROPHILS 69.2 % (40-80); PLATELET COUNT 178 10x3/uL (130-400); RDW 12.5 % (11.5-14.5)
[2017-10-02 00:53] LABS: ALBUMIN 3.7 g/dL (3.4-5.0); ALKALINE PHOSPHATASE 68 U/L (46-116); ALT (SGPT) 36 U/L (10-68); BILIRUBIN - TOTAL 0.61 mg/dL (0.2-1.3); CALC OSMOLALITY 277 mosm/kg (275-300); CALCIUM 9.2 mg/dL (8.5-10.1); CHLORIDE - SERUM 103 mmol/L (98-107); CREATININE - SERUM 1.5 mg/dL (0.6-1.3); POTASSIUM - SERUM 4.5 mmol/L (3.5-5.1); SODIUM 138 mmol/L (136-145); UREA NITROGEN 14 mg/dL (7-18); eGFR NON AFRICAN AMERICAN 53 mL/min (90-120)
[2017-10-02 00:54] LABS: INR 1.01 (0.85-1.17); PROTIME 12.9 SECONDS (11.6-15.0)
[2017-10-02 00:55] LABS: GLUCOSE 121 mg/dL (74-106)
[2017-10-02 01:04] LABS: CKMB 0.8 U/L (0.0-3.6); CREATINE KINASE 378 UL (21-232)
[2017-10-02 01:11] LABS: TROPONIN-I < 0.017 ng/mL (0.000-0.060)
[2017-10-02 02:26] LABS: UDS - AMPHET NEGATIVE QUAL (NEGATIVE); UDS - BARB NEGATIVE QUAL (NEGATIVE); UDS - BENZO POSITIVE QUAL (NEGATIVE); UDS - COCAINE NEGATIVE QUAL (NEGATIVE); UDS - OPIATE POSITIVE QUAL (NEGATIVE); UDS - PCP NEGATIVE QUAL (NEGATIVE); UDS - THC NEGATIVE QUAL (NEGATIVE)
[2017-10-02 02:27] LABS: APPEARANCE CLEAR (CLEAR); BILIRUBIN NEGATIVE (NEGATIVE); COLOR YELLOW (YELLOW); GLUCOSE NEGATIVE (NEGATIVE); KETONE NEGATIVE (NEGATIVE); NITRITE NEGATIVE (NEGATIVE); PROTEIN NEGATIVE (NEGATIVE); SPECIFIC GRAVITY 1.015 (1.005-1.020); UROBILINOGEN NORMAL (NORMAL)
[2017-10-02 02:28] LABS: BACTERIA FEW /hpf (NONE SEEN); EPITHELIAL CELLS NSEEN /hpf (0-5); RED CELLS - URINE 0-5 /hpf (0-5); WHITE CELLS - URINE 0-5 /hpf (0-5)
[2017-10-02 07:36] LABS: CKMB 1.2 U/L (0.0-3.6); CREATINE KINASE 372 UL (21-232)
[2017-10-02 07:38] LABS: TROPONIN-I < 0.017 ng/mL (0.000-0.060)
[2017-10-02 13:08] LABS: CKMB 1.8 U/L (0.0-3.6); CREATINE KINASE 385 UL (21-232)
[2017-10-02 13:11] LABS: TROPONIN-I < 0.017 ng/mL (0.000-0.060)
[2017-10-02 18:18] LABS: CKMB 1.6 U/L (0.0-3.6); CREATINE KINASE 330 UL (21-232)
[2017-10-02 18:19] LABS: TROPONIN-I < 0.017 ng/mL (0.000-0.060)
[2017-10-02 21:20] VITALS: BP 101/71
[2017-10-03] VITALS (7 sets, daily range): BP systolic 101–140; BP diastolic 60–88; BMI 31.4
[2017-10-03 06:44] LABS: BASOPHILS 0.2 % (0-2); EOSINOPHILS 0.4 % (0-7); HEMATOCRIT 36.7 % (42.0-54.0); HEMOGLOBIN 12.1 g/dL (13.5-17.5); IMMATURE GRANULOCYTES 1.5 % (0-5); LYMPHOCYTES 12.9 % (15-50); MCH 31.3 pg (26.0-34.0); MCV 94.8 fL (80.0-100.0); MEAN PLATELET VOLUME 9.5 fL (7.4-10.4); MONOCYTES 9.6 % (2-11); NEUTROPHILS 75.4 % (40-80); PLATELET COUNT 203 10x3/uL (130-400); RBC 3.87 10x6/uL (4.20-6.10); RDW 12.3 % (11.5-14.5); WBC 13.6 10x3/uL (4.8-10.8)
[2017-10-03 06:58] LABS: ALBUMIN 3.4 g/dL (3.4-5.0); ANION GAP 11.7 mmol/L (8-16); BILIRUBIN - TOTAL 0.37 mg/dL (0.2-1.3); CALCIUM 8.9 mg/dL (8.5-10.1); CARBON DIOXIDE 27.2 mmol/L (21.0-32.0); CREATININE - SERUM 1.4 mg/dL (0.6-1.3); POTASSIUM - SERUM 4.9 mmol/L (3.5-5.1); PROTEIN - SERUM 6.6 g/dL (6.4-8.2)
[2017-10-03] MEDS ORDERED: VENTOLIN HFA18 GM INH (23:45)
[2017-10-04 01:41] VITALS: BP 147/65
[2017-10-04 02:32] LABS: CREATINE KINASE 154 UL (21-232); TROPONIN-I < 0.017 ng/mL (0.000-0.060)
[2017-10-04 05:16] VITALS: BP 109/62
[2017-10-04 09:40] VITALS: Ht 170.2 cm; Wt 90.5 kg
[2017-10-04 09:50] VITALS: BP 113/69
[2017-10-04 12:06] VITALS: BP 148/81
[2017-10-04 17:27] VITALS: BP 106/65
[2017-10-04 21:06] VITALS: BP 118/68
[2017-10-05 00:58] VITALS: BP 121/68
[2017-10-05 04:00] VITALS: BP 110/54
[2017-10-05 07:02] LABS: BASOPHILS 0.4 % (0-2); HEMATOCRIT 39.3 % (42.0-54.0); HEMOGLOBIN 13.2 g/dL (13.5-17.5); IMMATURE GRANULOCYTES 2.6 % (0-5); LYMPHOCYTES 37.1 % (15-50); MCH 31.5 pg (26.0-34.0); MCHC 33.6 g/dL (31.0-37.0); MCV 93.8 fL (80.0-100.0); MONOCYTES 11.4 % (2-11); NEUTROPHILS 42.5 % (40-80); PLATELET COUNT 176 10x3/uL (130-400); RBC 4.19 10x6/uL (4.20-6.10); RDW 12.6 % (11.5-14.5); WBC 7.4 10x3/uL (4.8-10.8)
[2017-10-05 07:16] LABS: ANION GAP 14.3 mmol/L (8-16); CALCIUM 8.8 mg/dL (8.5-10.1); CARBON DIOXIDE 25.6 mmol/L (21.0-32.0); CREATININE - SERUM 1.3 mg/dL (0.6-1.3); POTASSIUM - SERUM 3.9 mmol/L (3.5-5.1)
[2017-10-05 08:48] VITALS: BP 102/71
[2017-10-05] MEDS ORDERED: FLOMAX0.4 MG PO (09:47)
[2017-10-05 11:38] VITALS: BP 110/66
== END 2017-10-05 14:06 | disposition home or self-care (01) | DRG 871 ==
LOC: D.ER 23:44 → D.M2 10-02 05:44 → D.EDHOLD 10-02 05:44 → OBSVTIME 10-02 05:44 → D.M2 10-02 15:03
PROVIDERS: Family Medicine; Internal Medicine Interventional Cardiology; Internal Medicine Nephrology; Nurse Practitioner Family
DX: A41.9 Sepsis, unspecified organism (principal); G93.41 Metabolic encephalopathy; N39.0 Urinary tract infection, site not specified; J98.11 Atelectasis; N17.9 Acute kidney failure, unspecified; K21.9 Gastro-esophageal reflux disease without esophagitis; I25.10 Atherosclerotic heart disease of native coronary artery without angina pectoris; Z95.5 Presence of coronary angioplasty implant and graft; F41.9 Anxiety disorder, unspecified; E78.5 Hyperlipidemia, unspecified; K59.00 Constipation, unspecified

== ENCOUNTER 2017-10-09 00:25 | Emergency (ER) | payer MEDICARE ==
[2017-10-04 09:40] VITALS: BMI 31.4
[~2017-10-09 00:25] MED LIST changes: +FLOMAX0.4 MG PO; +VENTOLIN HFA18 GM INH
[2017-10-09 02:08] LABS: EOSINOPHILS 5.5 % (0-7); HEMATOCRIT 42.9 % (42.0-54.0); IMMATURE GRANULOCYTES 1.3 % (0-5); MCH 32.2 pg (26.0-34.0); MCV 92.1 fL (80.0-100.0); MEAN PLATELET VOLUME 9.4 fL (7.4-10.4); MONOCYTES 8.8 % (2-11); NEUTROPHILS 58.4 % (40-80); RBC 4.66 10x6/uL (4.20-6.10); RDW 12.8 % (11.5-14.5); WBC 11.3 10x3/uL (4.8-10.8)
[2017-10-09 02:10] LABS: PLATELET COUNT 238 10x3/uL (130-400)
[2017-10-09 02:23] LABS: LIPASE 70 U/L (73-393); PRO BNP 8 pg/mL (0-125)
[2017-10-09 02:59] LABS: ALBUMIN 4.4 g/dL (3.4-5.0); ANION GAP 21.5 mmol/L (8-16); BILIRUBIN - TOTAL 0.7 mg/dL (0.2-1.3); CARBON DIOXIDE 21.1 mmol/L (21.0-32.0); CREATININE - SERUM 1.8 mg/dL (0.6-1.3); POTASSIUM - SERUM 4.6 mmol/L (3.5-5.1); PROTEIN - SERUM 7.6 g/dL (6.4-8.2)
== END 2017-10-09 03:00 | disposition home or self-care (01) ==
LOC: D.ER 00:25
PROVIDERS: Family Medicine
DX: R07.89 Other chest pain (principal); R05 Cough

== ENCOUNTER 2018-01-16 21:59 | Observation (INO) | payer MEDICARE ==
[~2018-01-16] VITALS: Ht 170.2 cm; Wt 92.7 kg
--- NOTE | ~2018-01-16 | HEMODYNAMI ---
PATIENT:ANDRE PATIÑO MEDICAL RECORD: [id number] : 72 LOCATION:[facility] D.2116 ADMISSION DATE: 01/17/18 Generatedon:01/17/201815:38 Patient name: ANDRE PATIÑO Patient #: [id number] : 1970 Date of study: 01/17/2018 Page: Of Hemodynamic Procedure Report Patient Data Patient Demographics Procedure consent was obtained First Name: ANDRE Gender: Male Last Name: HAROON : 1970 Middle Initial: JOJO Age: 47 year(s) Patient #: [id number] Race: SSN: [id number] Additional ID: [id number] Contact details [address]: [address] [place] [address] State: [place] City: [place] Zip code: [address] Past Medical History Allergies Allergen Reaction Date Comments Reported Other allergy 09/26/2017 Codeine, Promethazine, Guaifenesin. Other allergy 01/17/2018 CHERATUSSIN, PHENERGAN Admission Admission Data Admission Date: 01/17/2018 Admission Time: 1:03 Room #: D.2116 Lab Results Lab Result Date: 01/17/2018 Lab Result Time: 0:00 Biochemistry Name Units Result Min Max BUN mg/dl 11 --(-*--)-- 7 18 Creatinine mg/dl 1.5 --(----)-* 0.6 1.3 CBC Name Units Result Min Max Hemoglobin g/dl 15.4 --(-*--)-- 13.5 17.5 Procedure Procedure Types Cath Procedure Diagnostic Procedure LHC LHC w/Coronaries Procedure Description Procedure Date Procedure Date: 01/17/2018 Procedure Start Time: 15:28 Procedure End Time: 15:34 Procedure Staff Name Function Lj Zamorano MD Performing Physician Paty Mayo RT Monitor Catarina Norman RN Nurse Prateek Agustin RT Scrub Procedure Data Cath Procedure Fluoroscopy Diagnostic fluoroscopy Total fluoroscopy Time: 0.6 time: 0.6 min min Diagnostic fluoroscopy Total fluoroscopy dose: 400 dose: 400 mGy mGy Contrast Material Contrast Material Type Amount (ml) Isovue 300 50 Entry Location Entry Primary Successful Side Size Upsize Upsize Entry Closure Succes sful Closure Location (Fr) 1 (Fr) 2 (Fr) Remarks Device Remarks Femoral Right 5 Fr Exoseal artery Estimated blood loss: 5 ml Diagnostic catheters Device Type Used For End Catheter Placement MULTIPACK 3DRC 5Fr Procedure catheter MULTIPACK JL 4.0 5Fr Procedure catheter MULTIPACK Pigtail 5 Fr Procedure catheter Procedure Complications No complications Procedure Medications Medication Administration Route Dosage Oxygen NC 2 l/min Lidocaine 2% added to field 20 Heparin Flush Bag added to field 2 bags (1000units/500ml NS) 0.9% NaCl I.V. 100 ml/hr Plavix P.O. 75 mg Versed I.V. 2 mg Fentanyl I.V. 100 mcg Versed I.V. 1 mg Fentanyl I.V. 50 mcg Versed I.V. 1 mg Fentanyl I.V. 50 mcg Hemodynamics Rest HGB: 15.4 (g/dl) Heart Rate: 85 (bpm) Snapshots Pre Cath Intra NCS Post Cath Vital Signs Time Heart Resp SPO2 etCO2 NIBP (mmHg) Rhythm Pain Sedation Rate (ipm) (%) (mmHg) Status Level (bpm) 15:16:15 84 17 99 0 148/90(110) NSR 0 (11) 10(A) , No pain 15:20:52 78 16 95 23.1 138/93(109) NSR 0 (11) 10(A) , No pain 15:25:30 81 17 94 39.6 146/93(137) NSR 0 (11) 10(A) , No pain 15:30:13 85 18 94 20 150/88(116) NSR 0 (11) 9(A) , No pain 15:36:01 87 16 93 20.7 156/109(137) NSR 0 (11) 10(A) , No pain Medications Time Medication Route Dose Verified Delivered Reason Notes Effe ctiveness by by 15:14:00 Oxygen NC 2 Lj Elmore used for l/min Jaun Norman skirt trimmer 15:14:08 Lidocaine 2% added 20ml Lj Calhoun for local to vial Jaun Zamorano MD anesthetic field 15:14:17 Heparin Flush added 2 Lj Estradarey used for Bag to bags Jaun Zamorano MD procedure (1000units/500ml field NS) 15:14:28 0.9% NaCl I.V. 100 Lj Elmore Per ml/hr Jaun Norman RN physician 15:18:51 Plavix P.O. 75 mg Lj Elmore for Jaun Norman RN sedation 15:20:37 Versed I.V. 2 mg Lj Elmore for Jaun Norman RN sedation 15:20:42 Fentanyl I.V. 100 Ljderek Florenceie for mcg Jaun Norman RN sedation 15:25:42 Versed I.V. 1 mg Lj Florenceie for Jaun Norman RN sedation 15:25:47 Fentanyl I.V. 50 Lj Florenceie for mcg Jaun Norman RN sedation 15:28:54 Versed I.V. 1 mg Lj Florenceie for Jaun Norman RN sedation 15:28:58 Fentanyl I.V. 50 Ljderek Florenceie for mcg Jaun Norman RN sedation Procedure Log Time Note 14:54:16 Prateek ROUSE(R) sent for patient. Start room use. 14:54:17 Time tracking: Regular hours (M-F 7:00 - 5:00) 14:54:20 Plan of Care:Hemodynamics will remain stable., Cardiac rhythm will remain stable., Comfort level will be maintained., Respiratory function will remain adequate., Patient/ family verbilizes understanding of procedure., Procedure tolerated without complication., Recovers from procedure without complications.. 15:04:47 H&P Date Dictated: 01/17/2018 ER History on chart.. 15:05:36 Lab Result : Creatinine 1.5 mg/dl 15:05:36 Lab Result : BUN 11 mg/dl 15:05:36 Lab Result : Hemoglobin 15.4 g/dl 15:07:38 Patient received from Pre/Post Procedure Room to CCL 1 Alert and oriented. Tansferred to table in Supine position. 15:07:39 Warm blankets applied, and alberto hugger turned on for patient comfort. 15:07:39 Correct patient and procedure confirmed by team. 15:07:41 Signed procedure consent form obtained from patient. 15:07:42 ECG and BP/O2 sat monitors applied to patient. 15:14:00 Oxygen 2 l/min NC was administered by Catarina Norman RN; used for procedure; 15:14:08 Lidocaine 2% 20ml vial added to field was administered by Lj Zamorano MD; for local anesthetic; 15:14:17 Heparin Flush Bag (1000units/500ml NS) 2 bags added to field was administered by Lj Zamorano MD; used for procedure; 15:14:28 0.9% NaCl 100 ml/hr I.V. was administered by Catarina Norman RN; Per physician; :15:19 Vital chart was started 15:16:09 Baseline sample Acquired. 15:16:16 Rhythm: sinus rhythm 15:16:17 Full Disclosure recording started 15:16:18 Pre-procedure instructions explained to patient. 15:16:19 Pre-op teaching completed and patient verbalized understanding. 15:16:35 Patient NPO since Midnight. 15:17:19 Patient allergic to Other allergyCHERATUSSIN, PHENERGAN 15:17:21 Is the patient allergic to Iodine/contrast media? No. 15:17:23 Is patient on blood thinner?Yes 15:17:25 ACC The patient was administered the following blood thiners within the last 24 hours: ACCPlavix 15:17:28 Patient diabetic? No. 15:17:36 Previous problem with sedation/anesthesia? No ? 15:17:37 Snore? Yes 15:17:38 Sleep apnea? No 15:17:39 Deviated septum? No 15:17:39 Opens mouth fully? Yes 15:17:40 Sticks out tongue? Yes 15:17:42 Airway obstruction? No ? 15:17:46 Dentures? Yes OUT 15:17:51 Pre procedure: right dorsailis pedis pulse 2+ Normal; easily identifiable; not easily obliterated 15:17:57 Patient pain scale 0/10 ?. 15:18:09 IV patent on arrival in left hand with 0.9% NaCl at [facility]. 15:18:14 Lab results completed and on chart. 15:18:17 Right groin area was prepped with chlora-prep and draped in sterile fashion 15:18:18 Alarms reviewed by RFelicitas N. 15:18:18 Sharps counted by scrub and verified by R.NFelicitas 15:18:20 --------ALL STOP TIME OUT------ 15:18:21 Final Timeout: patient, procedure, and site verified with staff and physician. All members of the team are in agreement. 15:18:22 Right groin site verified by team. 15:18:27 Physical assessment completed. ASA score P 2 - A patient with mild systemic disease as per Lj Zamorano MD. 15:18:31 Sedation plan: IV Moderate Sedation Medication:Versed, Fentanyl 15:18:45 Patient diabetic? Yes. 15:18:48 If diabetic: On Metformin? Yes 15:18:51 Plavix 75 mg P.O. was administered by Catarina Norman RN; for sedation; 15:18:57 If on Metformin: Last Dose? 01/15/2018 15:19:01 Use device set Femoral Dx 15:19:02 ACIST Syringe (80489) opened to sterile field. 15:19:03 Bag Decanter (2002S) opened to sterile field. 15:19:04 ACIST Manifold (68065) opened to sterile field. 15:19:05 ACIST Hand Control (30475) opened to sterile field. 15:19:06 Tegaderm 4 x 4 (1626W) opened to sterile field. 15:19:08 Medline Cath Pack ([id number]) opened to sterile field. 15:19:08 DIAGNOSTIC WIRE .035 260cm J wire (695746) opened to sterile field. 15:19:12 DIAGNOSTIC Multipack 5Fr catheter set (FV1030) opened to sterile field. 15:19:13 SHEATH Prelude 5Fr 0.035 (OUF-9J-36-035) opened to sterile field. 15:20:37 Versed 2 mg I.V. was administered by Catarina Norman RN; for sedation; 15:20:42 Fentanyl 100 mcg I.V. was administered by Catarina Norman RN; for sedation; 15:25:42 Versed 1 mg I.V. was administered by Catarina Norman RN; for sedation; 15::47 Fentanyl 50 mcg I.V. was administered by Catarina Norman RN; for sedation; 15:27:51 Zero performed for pressure channel P1 15:28:00 Procedure started. 15:28:24 Local anesthetic to right femoral artery with Lidocaine 2% by Lj Zamorano MD.INITIAL ACCESS ONLY 15:28:47 A 5 Fr sheath was inserted into the Right Femoral artery 15::54 Versed 1 mg I.V. was administered by Catarina Norman RN; for sedation; 15::58 Fentanyl 50 mcg I.V. was administered by Catarina Norman RN; for sedation; 15::24 A MULTIPACK Pigtail 5 Fr catheter was advanced over the wire and used for Procedure. 15:29:25 LV gram done using VARGAS 15:: Injector settings: Ml/sec: 10, Volume: 20, 15::49 EF : 55 % 15::50 Catheter removed. 15::54 A MULTIPACK JL 4.0 5Fr catheter was advanced over the wire and used for Procedure. 15:30:36 LCA angiography performed. 15:31:15 Catheter removed. 15::25 A MULTIPACK 3DRC 5Fr catheter was advanced over the wire and used for Procedure. 15:31:53 RCA angiography performed. 15:32:31 Catheter removed. 15:32:32 EXOSEAL 5Fr (EX500) opened to sterile field. 15:32:43 Sheath removed intact; hemostasis achieved with Exoseal to the Right Femoral artery. 15:32:56 Procedure ended.(Physican Out) 15:33:07 Fluoroscopy time 00.60 minutes. 15:33:11 Flurop Dose total: 400 15:33:11 Fluoroscopy dose: 400 mGy 15:33:14 Contrast amount:Isovue 300 50ml. 15:33:15 Sharps counted by scrub and verified by R.N. 15:33:20 Post-op/insertion site Right Femoral artery dressed using a 4 x 4 and Tegaderm. 15:33:28 Post right femoral artery:stable, soft, clean and dry 15:33:35 Post-procedure physical assessment completed. ASA score P 2 - A patient with mild systemic disease as per Lj Zamorano MD. 15:33:40 Post procedure rhythm: unchanged. 15:33:42 Estimated blood loss: 5 ml 15:34:13 Post procedure instruction explained to patient.Patient verbalizes understanding. 15:34:14 Patient needs reinforcement of post procedure teaching. 15:34:32 Procedure and supply charges have been captured, reviewed, submitted and are correct. 15:34:35 Procedure Complication : No complications 15:34:37 Vital chart was stopped 15:34:43 See physician's report for complete and final results. 15:34:45 Report given to Pre/Post Procedure Room. 15:34:48 Patient transfered to Pre/Post Procedure Room with Bed. 15:34:50 Procedure ended. 15:34:50 Full Disclosure recording stopped 15:34:53 End room use (Document Last) Device Usage Item Name Manufacture Quantity Catalog Number Hospital Part Current M inimal Lot# / Charge Number Stock Stock Serial# Code ACIST Syringe Acist 1 69167 [id number] 328589 938184 2 0 (35313) Medical Systems [employer] Reed Bag Decanter Microtek 1 2001S 068032 70877 489507 5 () Medical Inc. ACIST Manifold Acist 1 65312 854683 303855 600610 5 (84892) Medical Systems Inc ACIST Hand Acist 1 43045 290173 749396 348777 5 Control (83557) Medical Systems [employer] Reed Tegaderm 4 x 4 3M 1 1626W 573019 531765 216781 5 (1626W) Medline Cath Cardinal 1 [id number] 469432 90377 062978 5 Pack Health ([id number]) DIAGNOSTIC WIRE [facility] [place] 1 106217 201104 657236 270205 3 0 .035 260cm J wire (552577) DIAGNOSTIC Cardinal 1 [id number] 035176 70636 467048 3 0 Multipack 5Fr Health catheter set (LL1006) SHEATH Prelude Merit 1 [id number]-5W-85-035 262708 466353 795223 5 5Fr 0.035 Medical ([id number]-3G-71-035) MULTIPACK 3DRC Cardinal 1 660230 5 5Fr catheter Health MULTIPACK JL Cardinal 1 539576 5 4.0 5Fr Health catheter MULTIPACK Cardinal 1 [id number] 5 Pigtail 5 Fr Health catheter EXOSEAL 5Fr Cardinal 1 EX500 005262 745117 935337 1 0 (EX500) Health Signature Audit Atalissa Stage Time Signature Unsigned Intra-Procedure 01/17/2018 Paty Mayo 3:38:46 PM RT(R) Signatures Monitor : Paty Mayo Signature : RT Date : Time : [facility] [address] [place] [address]
--- NOTE | ~2018-01-16 | OP ---
PATIENT NAME: ANDRE PATIÑO MEDICAL RECORD: [id number] :72 LOCATION:D.ER ADMISSION DATE: SURGEON: FRANCO ONTIVEROS MD DATE OF OPERATION: 01/17/2018 PROCEDURES: 1. Left heart catheterization. 2. Selective coronary angiography. 3. Left ventriculogram. INDICATION: Chest pain compatible with angina. PROCEDURE IN DETAIL: After informed consent was obtained and after a detailed description of the risks, benefits as well as alternative therapies, the patient elected to proceed with angiogram and heart catheterization. The right femoral area was prepped and draped in normal sterile fashion. Right femoral artery was cannulated via modified Seldinger technique with placement of 6-Malay sheath. All catheters exchanged through this sheath. FINDINGS: Left ventriculogram was performed in standard 30-degree VARGAS view, reveals good cardiac wall motion throughout all segments. Overall ejection fraction estimated 60%. SELECTIVE CORONARY ANGIOGRAPHY: 1. Left main showed no significant angiographic disease. 2. Left anterior descending has moderate irregularities, but no flow-limiting stenosis and previously placed stent is widely patent. 3. Left circumflex has moderate irregularities, but no flow-limiting stenosis. 4. Right coronary artery has moderate irregularities, but no flow-limiting stenosis. OVERALL IMPRESSION: No significant coronary artery disease is present. No significant restenosis of the previously placed stents. Continue medical management of the coronary artery disease and cardiac risk factors. TRANSINT:[id number] Voice Confirmation ID: [id number] DOCUMENT ID: [id number] FRANCO ONTIVEROS MD at 1614 CC: [id number] DICTATION DATE: 01/17/18 1537 GAS PROVER: 01/17/18 1547 DEP ER 01/17/18 [place] [place] [address] [place] [address]
[2018-01-16 22:02] VITALS: Ht 170.2 cm; Wt 92.7 kg
[2018-01-16 22:50] LABS: BASOPHILS 0.7 % (0-2); EOSINOPHILS 2.1 % (0-7); HEMATOCRIT 42.7 % (42.0-54.0); HEMOGLOBIN 14.9 g/dL (13.5-17.5); IMMATURE GRANULOCYTES 0.9 % (0-5); MCH 32.1 pg (26.0-34.0); MCHC 34.9 g/dL (31.0-37.0); MEAN PLATELET VOLUME 9.5 fL (7.4-10.4); MONOCYTES 7.5 % (2-11); NEUTROPHILS 62.8 % (40-80); PLATELET COUNT 202 10x3/uL (130-400); RBC 4.64 10x6/uL (4.20-6.10); RDW 12.5 % (11.5-14.5); WBC 11.2 10x3/uL (4.8-10.8)
[2018-01-16 22:59] LABS: APTT 30.9 SECONDS (22.8-39.4); INR 1.06 (0.85-1.17); PROTIME 13.4 SECONDS (11.6-15.0)
[2018-01-16 23:00] VITALS: BP 129/79
[2018-01-16 23:01] LABS: D-DIMER-QUANTITATIVE < 0.27 ug/mLFEU (0.20-0.54)
[2018-01-16 23:10] LABS: ALBUMIN 4.1 g/dL (3.4-5.0); ALKALINE PHOSPHATASE 70 U/L (46-116); ALT (SGPT) 50 U/L (10-68); BILIRUBIN - TOTAL 0.47 mg/dL (0.2-1.3); CALC OSMOLALITY 283 mosm/kg (275-300); CALCIUM 9.3 mg/dL (8.5-10.1); CARBON DIOXIDE 24.9 mmol/L (21.0-32.0); CHLORIDE - SERUM 104 mmol/L (98-107); CREATININE - SERUM 1.5 mg/dL (0.6-1.3); POTASSIUM - SERUM 4.1 mmol/L (3.5-5.1); PROTEIN - SERUM 7.3 g/dL (6.4-8.2); SODIUM 141 mmol/L (136-145); UREA NITROGEN 11 mg/dL (7-18); eGFR NON AFRICAN AMERICAN 53 mL/min (90-120)
[2018-01-16 23:11] LABS: GLUCOSE 170 mg/dL (74-106)
[2018-01-16 23:22] LABS: CKMB 2.1 U/L (0.0-3.6); TROPONIN-I < 0.017 ng/mL (0.000-0.060)
[2018-01-17] VITALS (12 sets, daily range): BP systolic 100–148; BP diastolic 66–883
[2018-01-17 05:21] LABS: CKMB 2.2 U/L (0.0-3.6); CREATINE KINASE 318 UL (21-232); TROPONIN-I < 0.017 ng/mL (0.000-0.060)
[2018-01-17 08:02] LABS: BASOPHILS 0.5 % (0-2); EOSINOPHILS 2.7 % (0-7); HEMOGLOBIN 15.4 g/dL (13.5-17.5); IMMATURE GRANULOCYTES 1.1 % (0-5); LYMPHOCYTES 36.8 % (15-50); MCH 32.4 pg (26.0-34.0); MCHC 34.2 g/dL (31.0-37.0); MEAN PLATELET VOLUME 9.6 fL (7.4-10.4); MONOCYTES 7.6 % (2-11); NEUTROPHILS 51.3 % (40-80); PLATELET COUNT 217 10x3/uL (130-400); RBC 4.76 10x6/uL (4.20-6.10); RDW 12.5 % (11.5-14.5); WBC 11.5 10x3/uL (4.8-10.8)
[2018-01-17 08:05] LABS: MCV 94.5 fL (80.0-100.0)
[2018-01-17 10:40] LABS: CKMB 2.2 U/L (0.0-3.6); CREATINE KINASE 330 UL (21-232); TROPONIN-I < 0.017 ng/mL (0.000-0.060)
== END 2018-01-17 17:50 | disposition home or self-care (01) ==
LOC: OBSVTIME → D.ER 21:59 → D.EDHOLD 01-17 01:03 → OBSVTIME 01-17 01:03 → D.CLR 01-17 01:03 → D.ER 01-17 01:03 → D.EDHOLD 01-17 01:03 → D.M2 01-17 15:22 → D.CLR 01-17 17:07
PROVIDERS: Family Medicine; Internal Medicine Cardiovascular Disease
DX: I25.119 Atherosclerotic heart disease of native coronary artery with unspecified angina pectoris (principal); I10 Essential (primary) hypertension; E11.65 Type 2 diabetes mellitus with hyperglycemia; E78.5 Hyperlipidemia, unspecified; K21.9 Gastro-esophageal reflux disease without esophagitis

== ENCOUNTER 2018-03-16 13:42 | Emergency (ER) | payer MEDICARE ==
[~2018-03-16] VITALS: Ht 170.2 cm; Wt 90.9 kg
[2018-03-16 13:45] VITALS: Ht 170.2 cm; Wt 90.9 kg
[2018-03-16 14:41] LABS: BASOPHILS 0.4 % (0-2); EOSINOPHILS 1.2 % (0-7); HEMATOCRIT 45.1 % (42.0-54.0); HEMOGLOBIN 15.8 g/dL (13.5-17.5); IMMATURE GRANULOCYTES 0.7 % (0-5); MCH 31.7 pg (26.0-34.0); MCV 90.6 fL (80.0-100.0); MEAN PLATELET VOLUME 9.4 fL (7.4-10.4); NEUTROPHILS 76.7 % (40-80); PLATELET COUNT 202 10x3/uL (130-400); RBC 4.98 10x6/uL (4.20-6.10); RDW 12.5 % (11.5-14.5); WBC 16.2 10x3/uL (4.8-10.8)
[2018-03-16 15:44] LABS: ALBUMIN 4.5 g/dL (3.4-5.0); BILIRUBIN - TOTAL 1.23 mg/dL (0.2-1.3); CALCIUM 9.7 mg/dL (8.5-10.1); CARBON DIOXIDE 26.6 mmol/L (21.0-32.0); CREATININE - SERUM 1.7 mg/dL (0.6-1.3); POTASSIUM - SERUM 4.6 mmol/L (3.5-5.1)
[2018-03-16] MEDS ORDERED: PREDNISONE20 MG PO ×3 (17:12→17:17)
[2018-03-16] MEDS ORDERED: LEVAQUIN750 MG PO (17:17)
[2018-03-16 17:27] VITALS: BP 98/57
== END 2018-03-16 17:35 | disposition home or self-care (01) ==
LOC: D.ER 13:42
PROVIDERS: Emergency Medicine
DX: J40 Bronchitis, not specified as acute or chronic (principal); I10 Essential (primary) hypertension; I25.10 Atherosclerotic heart disease of native coronary artery without angina pectoris

== ENCOUNTER 2020-05-01 13:35 | Emergency (ER) | payer MEDICARE ==
[~2020-05-01] VITALS: Ht 170.2 cm; Wt 84.1 kg
[~2020-05-01 13:35] MED LIST changes: +LEVAQUIN750 MG PO; +PREDNISONE20 MG PO
[2020-05-01 13:42] VITALS: Ht 170.2 cm; Wt 84.1 kg
[2020-05-01] MEDS ORDERED: AUGMENTIN 875-11 TAB PO (13:50)
[2020-05-01 14:30] VITALS: BP 136/87
== END 2020-05-01 14:31 | disposition home or self-care (01) ==
LOC: D.ER 13:35
DX: S00.81XA Abrasion of other part of head, initial encounter (principal); M77.11 Lateral epicondylitis, right elbow; I10 Essential (primary) hypertension; W54.1XXA Struck by dog, initial encounter; Y93.9 Activity, unspecified; Y92.9 Unspecified place or not applicable